=== PATIENT | female | born 1955 | race Caucasian/White ===

== ENCOUNTER 2016-08-12 14:09 | Observation (INO) | payer OTHER ==
[~2016-08-12] VITALS: Ht 154.9 cm; Wt 108.9 kg
[2016-08-12] VITALS (8 sets, daily range): BP systolic 148–204; BP diastolic 59–82; PULSE 63–80; RESP 9–19; O2SAT 94–96
[~2016-08-12 14:09] MED LIST: ALPR.25T PO; ASP81TEC PO; COZ100 PO; GLU500 PO; HUM100VI SQ; LEVO137T18 PO; SERT100T PO; TRAZ-151 PO; ZOC10 PO
[2016-08-12 14:52] LABS: BASOPHILS % (AUTO) 0.2 % (0-3); EOSINOPHILS % (AUTO) 0.9 % (0-5); Mean Corpuscular Hemoglobin 30.9 pg (27.0-35.0); Mean Corpuscular Volume 90.9 fL (81-100); Platelet Count 164 bil/L (150-400)
--- NOTE | 2016-08-12 14:59 | DRSVH ---
PROCEDURE: X-RAY CHEST ONE VIEW, PORTABLE ([id number]) INDICATIONS: 61 year-old female with intermittent substernal chest pain for 6 days. TECHNIQUE: One view of the chest was acquired. COMPARISON: [facility], CR, CHEST 2VW, 05/01/2009, 16:45. [facility], CR, CHEST 2VW, 10/10/2008, 17:05. [facility], CR, CHEST 1VW (PORTABLE), 02/06/2007, 4:41. FINDINGS: Surgical changes and devices: None. Lungs and pleura: No pleural effusions or pneumothorax. Lungs are clear. Mediastinum: Mediastinal contours appear normal. Heart size is normal. Bones and chest wall: No suspicious bony lesions. Overlying soft tissues appear unremarkable. IMPRESSION: No acute cardiopulmonary disease. Dictated by: Tery Lopez M.D. on 08/12/2016 at 14:57 Approved by: Trey Lopez M.D. on 08/12/2016 at 14:57
--- NOTE | 2016-08-12 15:06 | ED.REPORT ---
HPI-Chest Pain 40 and Over Date of Service Aug 12, 2016 ED Provider: Dr. Vicente 61 year old female DM, HTN and hyperlipidemia and mitral valve prolapse, with 5- 6 days of intermittent central chest pressure. She has this a few times a day, with no episodes lasting longer than 10 minutes. Symptoms are exacerbated with eating and laying down. At timed the pain is sharp. Since the onset of symptoms 2 hours ago her symptoms have improved. For the last few hours she has been experiencing a dull upper back pain between the shoulder blades. Earlier the patient felt tingling to bilat hands which has since resolved. She also reports palpitations, stress, and anxiety. Additionally she complains of a cough but denies SOB, diaphoresis, nausea, fever. En route the patient was given 324 ASA and 1 nitro by medics. Publishing Director is in [place]. Pt had a stress test at the time which was negative per patient. 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 (Aspirin EC-Expunged Drug, Do Not Renew!) 81 Mg Tablet 81 MG PO DAILY Atorvastatin (Lipitor) 80 Mg Tablet 80 MG PO DAILY Hydrochlorothiazide (Hydrochlorothiazide) 12.5 Mg Tablet 12.5 MG PO DAILY Insulin Aspart (NovoLOG U-100 Pen) 100 Unit/Ml Insuln.pen 20 TID Insulin Glargine (Lantus U100 Solostar Insulin Pen) 100 Unit/1 Ml Insuln.pen 90 UNIT SUBQ HS Lansoprazole ODT (Prevacid ODT) 15 Mg Tablet 15 MG PO DAILY Levothyroxine (Levothyroxine) 150 Mcg Tablet 150 MCG PO DAILY Losartan-Expunged Drug, Do Not Renew! (Losartan-Expunged Drug, Do Not Renew!) 100 Mg Tablet 100 MG PO HS Mirtazapine (Mirtazapine) 30 Mg Tablet 30 MG PO HS Trazodone-Expunged Drug, Do Not Renew! (Trazodone-Expunged Drug, Do Not Renew!) 50 Mg Tab 50 MG PO HS Scheduled PRN Alprazolam (Alprazolam) 1 Mg Tablet 0.5-1 MG PO TID PRN PRN For Anxiety Miscellaneous Medications Lactobacillus Acidophilus (Probiotic) 1 Each Capsule 1 EACH PO [place]-3/Dha/Epa/Fish Oil (Fish Oil 1,000 mg Softgel) 1 Each Capsule 2 EACH PO Ubidecarenone/Vitamin E Mixed (Yuu47-Din E 200 mg-20 Unit Sfg) 200 Mg-20 Unit Capsule 1 EACH PO General Time Seen by MD: 15:05 Chief Complaint Chest pain Hx Obtained From: Patient, EMS Arrived By: Ambulance Sudden in Onset?: Yes Onset Occurred: 5 days ago Symptom Duration: Intermittent Location: : Substernal Quality: Painful, Pressure, Sharp Radiation: : Does not radiate Severity: Current: Mild Severity: Maximum: Severe Associated with: Reports: Shortness of Breath, Denies: Fever Exacerbated by: Eating, Lying down Risk Factors )( CAD Risk Stratification Risk factors reviewed )( TAD Risk Stratification Risk factors reviewed )( PE Risk Stratification Risk factors reviewed Past Medical History Past Medical History Diabetes Hypertension hyperlipidemia Agoraphobia Past Surgical History Foot surgery Reports: Cholecystectomy Smoking History Current Every Day Smoker Social History Alcohol Use: "Social" Drug Use: THC Ambulatory Status Independent Review of Systems Basic Review of Systems Eyes: Vision NL, No discharge ENT: Hearing NL, No pain, No nasal congestion, No pharyngeal pain Constitutional: Denies: Chills, Fever Respiratory: Reports: Non-productive cough, Denies: Shortness of breath Cardiovascular: Reports: Chest pain, Denies: Edema, Palpitations GI: Denies: Abdominal pain, Diarrhea, Vomiting Musculoskeletal: Reports: Back pain, Denies: Extremity pain Skin: Denies Diaphoresis, Denies Rash Psychiatric: Reports: Anxiety, Stress Complete sys rev & neg: except as marked. Physical Exam Initial Vital Signs Vital Signs (First) Date Time Temp Pulse Resp B/P Pulse Ox O2 Delivery O2 Flow Rate FiO2 08/12/16 14:28 36.8 73 11 204/75 96 Room Air Initial VS: Reviewed, Vital signs abnormal Head / Eyes: Atraumatic, Normocephalic, PERRL ENT: Mucous membranes moist, Conjunctiva normal, No scleral icterus Neck: Supple, Full range of motion Extremities: Vascular intact, Neuro intact Skin: Warm, Dry, No cyanosis Neurologic: Alert, Oriented, Nonfocal Psychiatric: Mood/affect normal, Behavior normal, Normal thought content General/Constitutional: Awake, Alert Respiratory / Chest: Breath sounds NL, Breath sounds = bilat, No respiratory distress, No rales, No rhonchi, No wheezing, No stridor, No chest tenderness Cardiovascular: Heart rate NL, Regular rhythm, Heart sounds NL, No murmurs, Peripheral circulation NL, Pulses = bilaterally Abdomen: Soft, Non-tender Interpretation & Diagnostics Lab Results Interpretation Result Diagram: 08/12/16 1430 08/12/16 1430 Test 08/12/16 14:30 08/12/16 17:02 White Blood Count 10.2th/mm3 (3.8-10.1) Red Blood Count 4.53mil/mm3 (3.90-5.20) Hemoglobin 14.0g/dL (12.0-15.6) Hematocrit 41.2% (35.0-46.0) Mean Corpuscular Volume 90.9fL (81-100) Mean Corpuscular Hemoglobin 30.9pg (27.0-35.0) Mean Corpuscular Hemoglobin Concent 34.0% (32.0-37.0) Red Cell Distribution Width 13.4% (12.3-15.4) Platelet Count 164bil/L (150-400) Neutrophils (%) (Auto) 57.0% (40-74) Lymphocytes (%) (Auto) 35.5% (14-46) Monocytes (%) (Auto) 6.0% (4-12) Eosinophils (%) (Auto) 0.9% (0-5) Basophils (%) (Auto) 0.2% (0-3) Sodium Level 136mEq/L (134-144) Potassium Level 4.0mEq/L (3.5-5.2) Chloride Level 99mEq/L (97-108) Carbon Dioxide Level 19mmol/L (18-29) Blood Urea Nitrogen 18mg/dL (8-27) Creatinine 0.86mg/dL (0.57-1.00) Estimat Glomerular Filtration Rate 96mL/min (>59) Glucose Level 305mg/dL (60-99) Calcium Level 9.8mg/dL (8.5-10.1) Magnesium Level 1.5mg/dL (1.6-2.6) Total Bilirubin 0.4mg/dL (0.0-1.2) Aspartate Amino Transf (AST/SGOT) 37U/L (0-50) Alanine Aminotransferase (ALT/SGPT) 36U/L (0-32) Alkaline Phosphatase 120U/L (25-165) Troponin T < 0.010ug/L (0.0-0.011) Total Protein 7.6g/dL (6.4-8.4) Albumin 4.0g/dL (3.4-5.0) Hold Urine Received (Received) General Lab Results Interp 1: Labs reviewed ECG Interpretation ECG Interpretation: Lateral T wave changes. Flipped T waves in I, aVL, V5,V6. ST elevation in V1, V2. Changed from previous 2008. Time: 14:38 Interpreted by: ED physician Normal ECG Interpretation: Normal rate (72), Normal sinus rhythm, Normal axis, Normal intervals Time: 15:24 Interpreted by: ED physician Normal ECG Interpretation: Normal rate (76), Normal sinus rhythm Repeat ECG: Repeat ECG unchanged ECG Interpretation: No CP present Time: 16:25 Interpreted by: ED physician Normal ECG Interpretation: Normal rate (72), Normal sinus rhythm Repeat ECG: Repeat ECG unchanged X-Ray Chest Interpretation Chest Xray Interpretation: IMPRESSION: No acute cardiopulmonary disease. Dictated by: Trey Lopez M.D. on 08/12/2016 at 14:57 View: Portable, 1 view Interpretation / Wet Read by: Interpret - Radiologist CT Chest Interpretation IMPRESSION: 1. No thoracic or abdominal aortic dissection. No findings to suggest acute aortic syndrome. 2. Indeterminate 5 mm anterior right midlung nodule, as well as several punctate calcified bilateral granulomas. If no remote outside chest CTs are available, consider 12 month followup noncontrast chest CT, following the Fleischner society guidelines outlined below. Dictated by: Trey Lopez M.D. on 08/12/2016 at 16:48 Study type: Chest CT no contrast, Chest CT w contrast Interpretation / Wet Read by: Interpret - Radiologist Re-Eval/Medical Decision Med Decision/Clinical Course The patient presents with chest pain which is concerning for ischemia, her risk factors are age, obesity, cholesterol, and diabetes. She has new EKG changes and her symptoms resolved with nitroglycerin and metoprolol. Differential diagnoses considered were acute coronary syndrome, aortic dissection, pneumonia , pulmonary embolus, pancreatitis, and musculoskeletal pain. Time of Eval: 16:18 Re-Evaluation/Progress Note: pain 08/20. Consultation #1: Referral / Consult Name: Erick Chaudhari MD Consulted With: Cardiology Call Returned at: 16:04 Note: will review ECG Consultation #2: Referral / Consult Name: Erick Chaudhari MD Consulted With: Cardiology Call Returned at: 16:19 Note: Control BP. Does not believe that this is primarily cardiac related. Consultation #3: Referral / Consult Name: Everardo Garcia MD Consulted With: Hospitalist Call Returned at: 17:52 Entry Level Account Executive: Will see patient, Agrees with eval, Agrees with plan, Accepts admit Counseled Regarding: Diagnosis, Lab results, Need for admission Discharge & Departure Primary Impression: Chest pain Chest pain type: unspecified Qualified Code: R07.9 - Chest pain, unspecified Disposition: ADMITTED TO HOSPITAL Discharge Condition All VS Reviewed: Yes Referrals: OTHER,PHYSICIAN (PCP) (Family) Scribe Attestation Portions of this note were transcribed by Alyssa Herrera. I, (Dr. Vicente) personally performed the history, physical exam and medical decision-making; I reviewed and confirmed the accuracy of the information in the transcribed note. Signed by: Alyssa Herrera. 08/12/2016, 1805 Ericka Vicente MD Aug 12, 2016 15:05 Alyssa Herrera Aug 12, 2016 15:27
[2016-08-12 15:23] LABS: Magnesium 1.5 mg/dL (1.6-2.6)
[2016-08-12] MEDS ORDERED: MeTOProlol 1 mg/mL 5 mL Inj IVPUSH ONE ×3 (15:25→16:25)
[2016-08-12 15:30] LABS: TROPONIN T < 0.010 ug/L (0.0-0.011)
[2016-08-12] MEDS ORDERED: Magnesium Sulf 2 Gm/50mL Water 2 GM in IV Premix 1 EACH IV ONE (15:40)
[2016-08-12] MEDS ORDERED: INSU100I13 SUBQ (15:42)
[2016-08-12] MEDS ORDERED: INSU100I (15:42)
[2016-08-12] MEDS ORDERED: ALPR1TAB7 PO (15:42)
[2016-08-12] MEDS ORDERED: LANS15TA3 PO (16:13)
[2016-08-12] MEDS ORDERED: LEVO150T5 PO (16:13)
[2016-08-12] MEDS ORDERED: MIRT30TA6 PO (16:13)
[2016-08-12] MEDS ORDERED: OMEG-38 PO (16:13)
[2016-08-12] MEDS ORDERED: HYDR12.55 PO (16:13)
[2016-08-12] MEDS ORDERED: LACT1CAP65 PO (16:13)
[2016-08-12] MEDS ORDERED: ATOR80TA PO (16:13)
[2016-08-12] MEDS ORDERED: UBID1CAP59 PO (16:13)
[2016-08-12] MEDS ORDERED: Nitroglycerin 2% 1 Gm Ointment TOPICAL ONE ×2 (16:20→16:45)
--- NOTE | 2016-08-12 16:50 | DRSVH ---
PROCEDURE: CT ANG CHEST/ABD W/WO CONTRAST ([id number]) INDICATIONS: 61 year-old female with hypertension and back pain. TECHNIQUE: Precontrast 5 mm thick sections acquired from the lung apices to the iliac crests. After the adminis tration of intravenous contrast, 3 mm thick sections again acquired from the lung apices to the iliac crests. 3-dimensional maximum intensity projection (MIP) oblique sagittal and coronal reformats wer e then acquired, and/or 3-dimensional volume rendering reformats. For radiation dose reduction, the following was used: automated exposure control. COMPARISON: [facility], CR, XR CHEST 1VW (PORTABLE), 08/12/2016, 14:29. FINDINGS: Image quality: Excellent. AORTA: Intramural hematoma: Absent. Maximum hematoma thickness: Not applicable. Focal contrast enhancement: Intramural blood pool (< 2 mm neck or imperceptible communication with aortic lumen): Absent. Ulcer-like projection (broad communication with aortic lumen > 3 mm): Absent.. Dissection: Absent. Josué classification: Not applicable. Periaortic hematoma: Absent. CHEST: Lungs and pleura: No acute airspace opacities. On axial image 21, 5 mm anterior right midlung nodul e is present. Scattered calcified punctate granulomas are also present bilaterally. No pleural effusi ons or pneumothorax. Central and peripheral airways are patent and normal in caliber. Mediastinum: There is mild cardiomegaly. No pericardial effusion. No mediastinal or hilar adenopath y by size criteria. Central pulmonary arteries are normal in size. Esophagus is normal in caliber. No hiatal hernias. Bones and chest wall: No axillary adenopathy by size criteria. Thyroid gland is normal in size. No suspicious bony lesions. No vertebral body compression fractures. ABDOMEN: Vasculature: Celiac trunk and mesenteric arteries are patent. Renal arteries are also patent. Solid organs: Liver and spleen are normal in size. Gallbladder is surgically absent. Biliary syste m is non dilated. Pancreas enhances normally. No adrenal nodules. Both kidneys are normal in size and enhancement, without hydronephrosis. Peritoneum and bowel: No free fluid or air. Bowel loops are normal in caliber and wall thickness. Nodes and vessels: No retroperitoneal or mesenteric adenopathy by size criteria. Inferior vena cava is normal in morphology. Bones: No suspicious bony lesions. No vertebral body compression fractures. Miscellaneous: No ventral hernias. IMPRESSION: 1. No thoracic or abdominal aortic dissection. No findings to suggest acute aortic syndrome. 2. Indeterminate 5 mm anterior right midlung nodule, as well as several punctate calcified bilateral granulomas. If no remote outside chest CTs are available, consider 12 month followup noncontrast ches t CT, following the Fleischner society guidelines outlined below. Fleischner Society criteria for SOLID lung nodule followup. Nodule size (mm)Low-risk patientHigh-risk [id number] follow-up neededFollow-up at 12 mo; if no anderson e, no further follow-up>[id number] CT at 12 mo; if no change, no further follow-up needed.Initial f ollow-up CT at 6-12 mo, then 18-24 mo if no change. >6-8Initial follow-up CT at 6-12 mo, then 18-24 mo if no change. Initial follow-up CT at 3-6 mo, then 9-12 mo and 24 mo if no change. >8Follow-up CT at 3, 9, 24 mo. Or PET and/or biopsy.Same as for low-risk pts. Dictated by: Trey Lopez M.D. on 08/12/2016 at 16:48 Approved by: Trey Lopez M.D. on 08/12/2016 at 16:48
[2016-08-12] MEDS: 0.9% Sodium Chloride 1,000 ML IV SCH (18:11)
[2016-08-12] MEDS ORDERED: Ondansetron 2 mg/mL 2 mL Inj IVPUSH PRN (18:15)
[2016-08-12] MEDS ORDERED: Alum-Mag Hydrox-Simeth 30 mL Suspension PO PRN (18:15)
--- NOTE | 2016-08-12 19:00 | NUR ---
transfer from ed to osc [id number] arrived on floor, a/o x 3, in no apparent distress. at bedside and supportive. iv infusing sans prob. ins to dbc and ankle wave and calf pump as well as in use of bedside controlls, no questions.
[2016-08-12] MEDS ORDERED: Polyethylene Glycol (PEG) 17 Gm Powder PO PRN (19:15)
[2016-08-12] MEDS ORDERED: hydrALAZINE 20 mg/mL Inj IV PRN (19:30)
[2016-08-12] MEDS: Insulin LISPRO 300 Unit/3 mL Inj SUBQ SCH (21:17)
--- NOTE | 2016-08-12 21:27 | PCM.HPMED ---
Subjective Date of Service Aug 12, 2016 Primary Provider: Admitting Physician: Everardo Garcia MD Primary Care Physician: Other,Physician Attending Physician: Everardo Garcia MD Admit Status: From the Emergency Department Chief Complaint: This is a 61-year-old female with intermittent chest pressure/pain for 2 days. She points to the center of her chest, making a fist in that location. It radiates variably, sometimes to both arms and hands, sometimes to both feet but the part that radiates is only tingling and not pain. There has been no palpitations, shortness of breath, abdominal pain. She does have "gas" and this symptom is relieved by belching. I do observe an episode of belching relieving her symptoms during my exam. She has a fairly loud murmur of apparent mitral stenosis, per her recollection, with apparently her last echocardiogram and stress test about [address] Guzmán in [place]. The EKG today shows significant T-wave inversions in the lateral and inferior leads as compared to the last EKG in the system from 2008. This is thought to be related to hypertensive strain given that her systolics are above 200. The emergency department attending did discuss her presentation with cardiology due to the EKG changes. Her troponin is normal. History of Present Illness: See above discussion. Review of Systems: There has been no bleeding, joint pain, fevers, chills, sweats, vomiting, seizures, dysuria, rash, depression, new allergies. Positive for chest pain, extremity tingling. 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 pylori gastritis Anxiety disorder Nicotine addiction in remission (stopped 5 days ago half a pack a day) Hyperlipidemia Diabetes mellitus type II Hypertension Depression Hypothyroidism Surgical History cholecystectomy right bunion surgery Tonsillectomy Social History Hx Alcohol Use: Yes (occasional) Hx Substance Use: No Hx Tobacco Use: No Smoking Status: Current Every Day Smoker Exam Vital Signs Vital Sign - Last Date Time Temp Pulse Resp B/P Pulse Ox O2 Delivery O2 Flow Rate FiO2 08/12/16 19:05 36.9 63 16 168/82 95 Room Air Exam She is alert and oriented, in no apparent distress. She does persist on sitting straight up at a 90 angle on the stretcher. Pupils are equally round and reactive to light and accommodation. Sclera are pink and nonicteric. Extraocular muscles are intact. Throat looks normal. No lymph nodes are felt head and neck or supraclavicular area. There is no thyromegaly. No carotid bruits are heard. JVD is less than 6 cm. Heart is regular rate and rhythm with a 2/6 systolic murmur. Lungs are clear to auscultation bilaterally. Abdomen is soft. Obese, nontender, no organomegaly Extremities have no ankle edema Skin has no rash or jaundice. Neuro exam is noted for cranial nerves II through XII testing intact, motor is 5 out of 5 throughout, DTRs are normal. There is no tremor. Lab and Diagnostics Result Diagram: 08/12/16 1430 08/12/16 1430 X-Rays, CTs and MRIs CHEST: Lungs and pleura: No acute airspace opacities. On axial image 21, 5 mm anterior right midlung nodule is present. Scattered calcified punctate granulomas are also present bilaterally. No pleural effusions or pneumothorax. Central and peripheral airways are patent and normal in caliber. Mediastinum: There is mild cardiomegaly. No pericardial effusion. No mediastinal or hilar adenopathy by size criteria. Central pulmonary arteries are normal in size. Esophagus is normal in caliber. No hiatal hernias. Bones and chest wall: No axillary adenopathy by size criteria. Thyroid gland is normal in size. No suspicious bony lesions. No vertebral body compression fractures. ABDOMEN: Vasculature: Celiac trunk and mesenteric arteries are patent. Renal arteries are also patent. Solid organs: Liver and spleen are normal in size. Gallbladder is surgically absent. Biliary system is non dilated. Pancreas enhances normally. No adrenal nodules. Both kidneys are normal in size and enhancement, without hydronephrosis. Peritoneum and bowel: No free fluid or air. Bowel loops are normal in caliber and wall thickness. Nodes and vessels: No retroperitoneal or mesenteric adenopathy by size criteria. Inferior vena cava is normal in morphology. Bones: No suspicious bony lesions. No vertebral body compression fractures. Miscellaneous: No ventral hernias. IMPRESSION: 1. No thoracic or abdominal aortic dissection. No findings to suggest acute aortic syndrome. 2. Indeterminate 5 mm anterior right midlung nodule, as well as several punctate calcified bilateral granulomas. If no remote outside chest CTs are available, consider 12 month followup noncontrast chest CT, following the Fleischner society guidelines outlined below. 12-lead ECG EKG is sinus rhythm without acute ST or T-wave changes. Assessment & Plan 1 - atypical chest pain, rule out acute coronary syndrome The EKG changes are concerning but are also consistent with left ventricular strain from current excessive blood pressure. Repeat troponin in the morning and continue telemetry monitoring. Order echocardiogram. Consider cardiology consultation. Consider cardiac stress test. 2 - paroxysmal hypertension Begin lisinopril and add when necessary IV hydralazine. 3 - hypothyroidism Continue levothyroxine 4 - type II diabetes mellitus Continue Lantus and aspart at home doses. 5 - hyperlipidemia Continue atorvastatin 6 - depression/anxiety Continue Remeron and Xanax. Everardo Edmonds M.D., MD Aug 12, 2016 19:23
[2016-08-12] MEDS: Insulin GLARgine 100 Unit/mL Syringe SUBQ SCH (22:26)
[2016-08-12] MEDS: Lisinopril 40 Tablet PO SCH (23:51)
[2016-08-13] VITALS (9 sets, daily range): BP systolic 131–144; BP diastolic 62–77; PULSE 64–76; RESP 18–20; O2SAT 94–100
[2016-08-13] MEDS ORDERED: OMEP20CA11 PO (01:29)
[2016-08-13] MEDS ORDERED: TRAZ-115 PO (01:29)
[2016-08-13] MEDS ORDERED: ASPI81TA3 PO (01:29)
[2016-08-13] MEDS: Pantoprazole 40 mg ER24 Tablet PO SCH (06:16)
[2016-08-13] MEDS: 0.9% Sodium Chloride 1,000 ML IV SCH ×3 (06:21→16:18)
[2016-08-13 06:28] LABS: BASOPHILS % (AUTO) 0.2 % (0-3); EOSINOPHILS % (AUTO) 1.2 % (0-5); MONOCYTES % (AUTO) 8.8 % (4-12); Mean Corpuscular Hemoglobin 30.6 pg (27.0-35.0); NEUTROPHILS % (AUTO) 59.1 % (40-74); Platelet Count 157 bil/L (150-400)
[2016-08-13 07:03] LABS: Magnesium 1.9 mg/dL (1.6-2.6)
[2016-08-13] MEDS: Insulin LISPRO 300 Unit/3 mL Inj SUBQ SCH ×3 (08:30→19:27)
[2016-08-13] MEDS: Lisinopril 40 Tablet PO SCH (08:52)
--- NOTE | 2016-08-13 17:45 | DRSVH ---
[facility] [address] [place] [address] Echocardiogram Report Name: JUN VEGA Date: 10/2016 Height: 61 in Hospital Exam Location: [facility] Weight: 233 lb Gender: Female BSA: 2.0 m2 : 1955 Age: 61 yrs BP: 138/74 mmHg Reason For Study: Mitral Valve- Stenosis Ordering Physician: Performed By: Amber Henry Interpretation Summary The left ventricle is normal in size. There is mild-moderate concentric left ventricular hypertrophy. Left ventricular systolic function is normal. The ejection fraction is estimated to be 60-65%. The right ventricle grossly appears normal in size with probable normal systolic function. There is no mitral stenosis. There is moderate aortic stenosis. The calculated aortic valve area is 1.0 cm2. No other echocardiographic abnormalities seen. Procedure: A two-dimensional transthoracic echocardiogram with color flow and Doppler was performed. There is no prior echocardiogram noted for this patient. Most of the acoustic windows were suboptimal, but the best imaging was obtained from the apical window. The patient was in normal sinus rhythm during the exam. Left Ventricle: Left ventricular wall thickness is moderately increased. The left ventricle is normal in size. The LVOT diameter is 1.8 cm. The LVOT velocity is 130.1 cm/sec. There is mild-moderate concentric left ventricular hypertrophy. The ejection fraction is estimated to be 60-65%. Left ventricular systolic function is normal. There are no focal wall motion abnormalities. Right Ventricle: The right ventricle grossly appears normal in size with probable normal systolic function. Atria: The left atrium is mildly dilated. Right atrial size is normal. There is no Doppler evidence for an interatrial shunt. Mitral Valve: The mitral valve leaflets are mildly calcified. The mitral valve leaflets appear mildly thickened. The mean gradient across the MV is 3.7 mmHg. There is no mitral stenosis. There is trace mitral regurgitation. Aortic Valve: The aortic valve is not well visualized. The peak aortic velocity is 334 cm/sec. The aortic valve mean gradient is 26 mmHg. There is moderate aortic stenosis. The calculated aortic valve area is 1.0 cm2. There is trace aortic regurgitation. Tricuspid Valve: The tricuspid valve is not well visualized. Pulmonary artery pressures cannot be estimated because of the lack of a measurable TR jet velocity. Pulmonic Valve: The pulmonic valve is not well visualized. Great Vessels: The aortic root is normal size. The ascending aorta is normal in size. The aortic arch could not be visualized. The inferior vena cava was not well visualized. Pericardium/ Pleura There is no pericardial effusion. MMode/2D Measurements & Calculations LVIDd: 4.8 cm RA long axis LVOT diam LVIDs: 3.1 cm LA A2 area: 20.5 cm FS: 35.6 % LA A4 area: 22.3 cm RA area AoV Opening EPSS: 0.59 cm LA length (vol): 5.5 cm IVSd: 1.3 cm LA vol: 70.1 ml : 13.0 cm Ao root diam LVPWd: 1.3 cm LA vol index RA vol : 31.2 ml asc Aorta : 34.8 ml/m2 RA Diam: 3.2 cm : 15.5 mm2 LV nathan. diameter/BSA LV sys. diameter/BSA (cm/m^2): 2.4 (cm/m^2): 1.5 Doppler Measurements & Calculations Ao V2 max MV E max irving MV E/A: 1.2 PA V2 max : 333.6 cm/sec : 148.5 cm/sec Med Peak E' Irving : 109.9 cm/sec Ao max PG MV A max irving PA mean PG : 44.5 mmHg : 128.6 cm/sec E/E' med: 26.1 Ao mean PG MV P1/2t: 71.1 msec Lat Peak E' Irving PA Accel Time : 26.0 mmHg MVA(VTI): 1.9 cm2 : 0.09 sec LVOT Max Irving E/E' lat: 22.4 : 130.1 cm/sec Pulm A Revs Dur MESSI(I,D) : 0.97 cm MV A dur: 0.12 sec sev ratio MV V2 mean MV P1/2t max irving Ao V2 mean LV V1 max PG : 88.7 cm/sec : 243.6 cm/sec MV mean PG Ao V2 VTI: 75.9 cm LV V1 VTI MVA(P1/2t): 3.1 cm2 : 27.3 cm MV V2 VTI MESSI(V,D): 1.0 cm2 MV dec time : 0.24 sec PA V2 mean MESSI indexed to BSA Pulm A Revs Dur - MV : 75.5 cm/sec (cm^2/m^2): 0.48 A Dur: 0.00 msec Reading Physician:05:44 PM
--- NOTE | 2016-08-13 18:14 | NUR ---
CARDIAC P- Patient showed inverted T wave on previous EKG. I- ECHO done today shows EF of 60-65, no abnormalities noted. E- MD note says possible stress test/cardiac consult tomorrow. Addendum: 08/13/16 at 1830 by CARTER MUNGUIA RN awaiting pending Coccidiodes Ab "valley fever" results.
[2016-08-13] MEDS: Insulin GLARgine 100 Unit/mL Syringe SUBQ SCH (21:06)
--- NOTE | 2016-08-13 22:52 | PCM.PNMED ---
Subjective Date of Service Aug 13, 2016 Subjective Patient continues to complain of chest discomfort which is parasternal on both sides of her sternum. The pain is described as a pressure and she says she has had pleurisy in the past and the pain does increase with deep inspiration but is little different than pleurisy. There is no radiation to the neck or left arm. Exam Vital Signs Vital Sign - Last Date Time Temp Pulse Resp B/P Pulse Ox O2 Delivery O2 Flow Rate FiO2 08/13/16 21:45 36.9 65 20 144/74 96 Room Air Intake and Output 08/12/16 08/12/16 08/13/16 Cumulative From/Thru 14:59 22:59 06:59 08/12/16 14:28 - 08/13/16 06:23 Intake Total 943 ml 943 ml Output Total 1600 ml 1600 ml Balance -657 ml -657 ml Intake Oral 150 ml 150 ml IV Total 793 ml 793 ml Output Urine Total 1600 ml 1600 ml # Voids 2 2 # Bowel Movements 0 0 Exam General: Patient is laying supine in bed in no apparent distress. She is interested in eating breakfast. And ordered it as soon as I left the room and when I came back she had 38 and her breakfast. She was in no apparent distress. HEENT: Head is atraumatic normocephalic. Eyes: Pupils are equally round and reactive to light and accommodation. Extraocular muscles are intact. Sclera are white anicteric. Subconjunctival mucosa is pink. Ears and nose are unremarkable. Oropharynx: There is no mucosal lesions, there is no thrush, there is no pharyngitis. Neck: Is supple, there is no nodes or masses or tenderness. Chest: Is clear to auscultation and percussion. There are no rales, rhonchi, wheezes or rubs. There is some parasternal tenderness with palpation. Heart: Rate, rhythm is regular. There is no murmur, rub or gallop. Abdomen: Good bowel sounds are present. Abdomen is soft, nontender, no organomegaly or masses were appreciated. Extremities: Are symmetrical and well perfused. There is no edema, there is no cellulitis, no rash. Neurologic: There are no focal neurological deficits. Cranial nerves II through XII are intact. There are no sensory or motor deficits. Psychiatric: Patients mood is calm and shows no sign of agitation. Genital: Deferred Rectal: Deferred Lab and Diagnostics Result Diagram: 08/13/16 0545 08/13/1645 X-Rays, CTs and MRIs CHEST: Lungs and pleura: No acute airspace opacities. On axial image 21, 5 mm anterior right midlung nodule is present. Scattered calcified punctate granulomas are also present bilaterally. No pleural effusions or pneumothorax. Central and peripheral airways are patent and normal in caliber. Mediastinum: There is mild cardiomegaly. No pericardial effusion. No mediastinal or hilar adenopathy by size criteria. Central pulmonary arteries are normal in size. Esophagus is normal in caliber. No hiatal hernias. Bones and chest wall: No axillary adenopathy by size criteria. Thyroid gland is normal in size. No suspicious bony lesions. No vertebral body compression fractures. ABDOMEN: Vasculature: Celiac trunk and mesenteric arteries are patent. Renal arteries are also patent. Solid organs: Liver and spleen are normal in size. Gallbladder is surgically absent. Biliary system is non dilated. Pancreas enhances normally. No adrenal nodules. Both kidneys are normal in size and enhancement, without hydronephrosis. Peritoneum and bowel: No free fluid or air. Bowel loops are normal in caliber and wall thickness. Nodes and vessels: No retroperitoneal or mesenteric adenopathy by size criteria. Inferior vena cava is normal in morphology. Bones: No suspicious bony lesions. No vertebral body compression fractures. Miscellaneous: No ventral hernias. IMPRESSION: 1. No thoracic or abdominal aortic dissection. No findings to suggest acute aortic syndrome. 2. Indeterminate 5 mm anterior right midlung nodule, as well as several punctate calcified bilateral granulomas. If no remote outside chest CTs are available, consider 12 month followup noncontrast chest CT, following the Fleischner society guidelines outlined below. 12-lead ECG EKG is sinus rhythm without acute ST or T-wave changes. Cardiac Echo Impressions Echocardiogram Report Name: JUN VEGA Date: 10/2016 Height: 61 in Hospital Exam Location: [facility] Weight: 233 lb Gender: Female BSA: 2.0 m2 : 1955 Age: 61 yrs BP: 138/74 mmHg Reason For Study: Mitral Valve- Stenosis Ordering Physician: Performed By: Amber Ofstad Interpretation Summary The left ventricle is normal in size. There is mild-moderate concentric left ventricular hypertrophy. Left ventricular systolic function is normal. The ejection fraction is estimated to be 60-65%. The right ventricle grossly appears normal in size with probable normal systolic function. There is no mitral stenosis. There is moderate aortic stenosis. The calculated aortic valve area is 1.0 cm2. No other echocardiographic abnormalities seen. Assessment & Plan This is a 61-year-old female with intermittent chest pressure/pain for 2 days. She points to the center of her chest, making a fist in that location. It radiates variably, sometimes to both arms and hands, sometimes to both feet but the part that radiates is only tingling and not pain. There has been no palpitations, shortness of breath, abdominal pain. She does have "gas" and this symptom is relieved by belching. I do observe an episode of belching relieving her symptoms during my exam. She has a fairly loud murmur of apparent mitral stenosis, per her recollection, with apparently her last echocardiogram and stress test about [address] Guzmán in [place]. The EKG today shows significant T-wave inversions in the lateral and inferior leads as compared to the last EKG in the system from 2008. This is thought to be related to hypertensive strain given that her systolics are above 200. The emergency department attending did discuss her presentation with cardiology due to the EKG changes. Her troponin is normal. Patient was brought in under observation to the hospital service for further evaluation and treatment. 1 - atypical chest pain, rule out acute coronary syndrome The EKG changes are concerning but are also consistent with left ventricular strain from current excessive blood pressure. Repeat troponin in the morning and continue telemetry monitoring. -The echocardiogram showed: "There is no mitral stenosis. There is moderate aortic stenosis. The calculated aortic valve area is 1.0 cm2. Consider cardiology consultation. Consider cardiac stress test." We will check stress test in a.m. and consider cardiology consultation. 2 - paroxysmal hypertension Begin lisinopril and add when necessary IV hydralazine. 3 - hypothyroidism Continue levothyroxine 4 - type II diabetes mellitus Continue Lantus and aspart at home doses. 5 - hyperlipidemia Continue atorvastatin 6 - depression/anxiety Continue Remeron and Xanax. 7- Indeterminate 5 mm anterior right midlung nodule, as well as several punctate calcified bilateral granulomas. 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 This disease could certainly cause some of her chest pain symptoms. I have ordered cocci serologies which are pending Disposition: Patient disposition will depend on stress test results she has significant aortic stenosis. Dr. Park to follow in a.m. Pain Evaluation: Adequate Pain Control GI Prophylaxis: Proton Pump Inhibitor VTE Prophylaxis: Sub-Q Enoxaparin Resuscitation Status: CPR: Attempt Resuscitation Jalen Montalvo MD Aug 13, 2016 22:52
[2016-08-14 02:00] VITALS: BP 162/70; PULSE 77; RESP 20; O2SAT 97
[2016-08-14] MEDS: 0.9% Sodium Chloride 1,000 ML IV SCH (02:54)
[2016-08-14 03:08] VITALS: PULSE 67
[2016-08-14 06:03] LABS: BASOPHILS % (AUTO) 0.4 % (0-3); MONOCYTES % (AUTO) 7.4 % (4-12); Mean Corpuscular Hemoglobin 30.9 pg (27.0-35.0); Mean Corpuscular Volume 91.4 fL (81-100); NEUTROPHILS % (AUTO) 54.6 % (40-74); Platelet Count 149 bil/L (150-400)
--- NOTE | 2016-08-14 06:19 | NUR ---
Telemetry Pt alert and oriented x3. STALLINGS. Pt denies any chest pain/discomfort. Pt had some decaf tea during dinner. Per patient, she had some decaf tea around 2100. Pt aware of npo after midnight and no caffeine diet. Pt was switched to No caffeine late last night. Addendum: 08/14/16 at 0729 by VITALY HOPE RN Pt requested for Senna this am for constipation. No bm at this time.
[2016-08-14 06:20] VITALS: BP 162/76; PULSE 62; RESP 20; O2SAT 98
[2016-08-14] MEDS: Pantoprazole 40 mg ER24 Tablet PO SCH (06:28)
[2016-08-14 07:16] LABS: Magnesium 1.9 mg/dL (1.6-2.6); Phosphorus 3.3 mg/dL (2.5-4.9)
[2016-08-14 07:28] LABS: TROPONIN T < 0.010 ug/L (0.0-0.011)
[2016-08-14] MEDS: Insulin LISPRO 300 Unit/3 mL Inj SUBQ SCH (08:30)
[2016-08-14 10:12] VITALS: PULSE 68
--- NOTE | 2016-08-14 10:16 | NUR ---
off unit for stress test Addendum: 08/14/16 at 1016 by JAYME VYAS CNA Amended: Links added.
--- NOTE | 2016-08-14 10:23 | NUR ---
Social Work Screening D: EMR reviewed. Pt is a 61Y old female [place] for Chest Pain Resolved. Insurance is [facility]. PCP is listed as other physician. Per EMR, Pt lives in [place] with her spouse where she remains independent. Stress test is pending. SW anticipates Pt to discarge home via POV when medically stable. No discharge needs identified. If needs arise, SW to address. A: Pt who is independent at baseline P: SW anticipates Pt to discarge home via POV when medically stable. No discharge needs identified. If needs arise, SW to address. SIRIA Dinh
[2016-08-14] MEDS: Lisinopril 40 Tablet PO SCH (11:19)
[2016-08-14] MEDS ORDERED: LOSA100T29 PO (11:30)
[2016-08-14 11:39] VITALS: BP 162/81; PULSE 101; RESP 20; O2SAT 98
--- NOTE | 2016-08-14 12:20 | DRSVH ---
PROCEDURE: 1 DAY PHARMACOLOGICAL STRESS TEST Rest and pharmacological stress myocardial perfusion SPECT with gated imaging and ejection fraction RADIOPHARMACEUTICAL: 16.5 mCi Tc-99m tetrafosmin IV at rest and 44.7 mCi Tc-99m tetrafosmin IV at pea k effect of pharmacological stress. A [id number] was performed. INDICATIONS: 61-year-old woman with chest pain and EKG changes. Patient has hypertension, diabetes a nd family history of coronary artery disease. TECHNIQUE: Radiopharmaceutical was injected at peak stress test, and also at rest. SPECT images wer e obtained. SPECT myocardial perfusion images were displayed in short axis, horizontal long axis, an d vertical long axis views. Gated images were reviewed using [employer] software. COMPARISON: None. CARDIAC STRESS: The patient started on an exercise stress test using standard Sadi protocol. The pa tient exercised for 4 and 33 seconds with functional aerobic impairment (MAC) +25% and reached 80% ma ximum predicted heart rate. The stress test was switched to Lexiscan infusion. A pharmacologic stress test was performed under the supervision of an attending staff, using an infus ion of Lexiscan. Hemodynamic data: There is borderline hypertensive and normal heart rate response to pharmacologic s tress. Symptoms: The patient developed 3/10 neck pressure at peak exercise, increased to 5/10 with Lexiscan infusion. Aminophylline: n/a EK mm downsloping ST depression in lead II, III, aVF, V4-V6. FINDINGS: Raw data: There is good myocardial uptake of radiotracer. No significant motion artifacts. Left ventricle function: Gated images demonstrate normal left ventricular wall thickening. No segme ntal wall motion abnormalities. No transient ischemic dilation. Left ventricle resting end diastoli c volume is normal. Left ventricle stress ejection fraction is greater than 70%; normal range is abo ve 45%. Myocardial perfusion: A small, mild, fixed defect is seen in the apex, which is resolved on prone im aging, consistent with attenuation artifact. There is otherwise normal distribution of activity in th e right and left ventricular myocardium. IMPRESSION: 1. Normal myocardial perfusion images. 2. Normal left ventricular volume and systolic function. 3. Decreased exercise capacity (MAC +25%). The patient reached 80% maximum predicted heart rate on Br uce protocol. tHE Stress test was switched to Lexiscan infusion. 4. The patient experienced neck pressure at peak exercise (3/10) and Lexiscan infusion (5/10). Abnorm al EKG EKG with [address] depression. PQRS ATTESTATIONS: Measure 322 - Is this imaging test primarily performed on a low-risk surgery patient for preoperative evaluation within 30 days preceding their low-risk non-cardiac surgery? Low-risk surgery is defined as cardiac or myocardial infarction less than 1%, including (but not limited to) endoscopic pr ocedures, superficial procedures, cataract surgery, and excisional breast surgery: Answer: No Measure 323 - Is this imaging test performed primarily for the monitoring of an asymptomatic patient who had percutaneous coronary intervention on the visit date or within 2 years of the visit date? An swer: No Measure 324 - Is this imaging test performed primarily for the initial detection and risk assessment on an asymptomatic, low coronary heart disease patient? Low CHD risk definition = clinicians should consider the maximum number of available patient factors used to estimate risk based on Stephenson (A TP III criteria), typically age, gender, diabetes, smoking status, and use of blood pressure medicati on, and integrate age appropriate estimates for missing elements, such as LDL or standard blood press ure. Answer: No Dictated by: Nadira Sagastume M.D. on 08/14/2016 at 12:18 Approved by: Nadira Sagastume M.D. on 08/14/2016 at 12:18
[2016-08-14] MEDS ORDERED: HYDR25TA4 PO (14:11)
--- NOTE | 2016-08-14 14:21 | PCM.DIMED ---
Discharge Instructions Date of Service Aug 14, 2016 Dates of Hospitalization Aug 12, 2016 at 18:55 Discharge Diagnosis Discharge Diagnosis chest pain, non-anginal Medication Instructions increase Hydrochlorothiazide 12.5mg to 25mg daily Diet Low fat, Low Sodium, Heart Healthy Activity No restrictions Call your provider Chest pain Patient Instructions You were hospitalized with chest pain. Blood works, stress test indicating that it is not heart origin. Please note that your blood pressure medicine was changed as BP [id number] during hospitalization Please monitor your blood pressure at home with new regimen. Please ask your PCP to follow up the result of Coccidiodes serology "Valley fever" as we discussed Please note that There is moderate aortic stenosis found on echocardiogram, The calculated aortic valve area is 1.0 cm2, You need to have regular follow up with [facility] [employer] [facility] Please note that you were also found a 5mm pulmonary nodule, granulomas, recommendations as below ->Indeterminate 5 mm anterior right midlung nodule, as well as several punctate calcified bilateral granulomas. If no remote outside chest CTs are available, consider 12 month followup noncontrast chest CT, following the Fleischner society guidelines Follow-up plan Please follow up with your primary doctor in 2weeks Follow-up Provider: LUCI VARGAS MD Follow-up with PCP in: 1 week Eitan Park MD Aug 14, 2016 14:21
--- NOTE | 2016-08-14 16:02 | NUR ---
discharged home with family. will have follow up with her PCP. New Rx to increase HCTZ to 25mg daily from 12.5mg r/t HTN
--- NOTE | 2016-08-15 17:36 | PCM.DC.MED ---
Discharge Summary Date of Service Aug 14, 2016 Dates of Hospitalization Date of Hospital Admission Aug 12, 2016 at 18:55 Date of Discharge: Aug 14, 2016 Providers: Admitting Physician: Everardo Garcia MD Primary Care Physician: Other,Physician Attending Physician: Everardo Garcia MD Diagnosis at Time of Discharge Diagnosis at Time of Discharge chest pain, non-anginal moderate aortic stenosis incidental pulmonary nodule, granulomas chronic HTN hypothyroidism type II diabetes mellitus hyperlipidemia depression/anxiety Procedures XRay, CTs & MRIs CHEST: Lungs and pleura: No acute airspace opacities. On axial image 21, 5 mm anterior right midlung nodule is present. Scattered calcified punctate granulomas are also present bilaterally. No pleural effusions or pneumothorax. Central and peripheral airways are patent and normal in caliber. Mediastinum: There is mild cardiomegaly. No pericardial effusion. No mediastinal or hilar adenopathy by size criteria. Central pulmonary arteries are normal in size. Esophagus is normal in caliber. No hiatal hernias. Bones and chest wall: No axillary adenopathy by size criteria. Thyroid gland is normal in size. No suspicious bony lesions. No vertebral body compression fractures. ABDOMEN: Vasculature: Celiac trunk and mesenteric arteries are patent. Renal arteries are also patent. Solid organs: Liver and spleen are normal in size. Gallbladder is surgically absent. Biliary system is non dilated. Pancreas enhances normally. No adrenal nodules. Both kidneys are normal in size and enhancement, without hydronephrosis. Peritoneum and bowel: No free fluid or air. Bowel loops are normal in caliber and wall thickness. Nodes and vessels: No retroperitoneal or mesenteric adenopathy by size criteria. Inferior vena cava is normal in morphology. Bones: No suspicious bony lesions. No vertebral body compression fractures. Miscellaneous: No ventral hernias. IMPRESSION: 1. No thoracic or abdominal aortic dissection. No findings to suggest acute aortic syndrome. 2. Indeterminate 5 mm anterior right midlung nodule, as well as several punctate calcified bilateral granulomas. If no remote outside chest CTs are available, consider 12 month followup noncontrast chest CT, following the Fleischner society guidelines outlined below. ECG 12 Lead EKG is sinus rhythm without acute ST or T-wave changes. Cardiac Echo Impression Echocardiogram Report Name: JUN VEGA Date: 10/2016 Height: 61 in Hospital Exam Location: [facility] Weight: 233 lb Gender: Female BSA: 2.0 m2 : 1955 Age: 61 yrs BP: 138/74 mmHg Reason For Study: Mitral Valve- Stenosis Ordering Physician: Performed By: Amber Henry Interpretation Summary The left ventricle is normal in size. There is mild-moderate concentric left ventricular hypertrophy. Left ventricular systolic function is normal. The ejection fraction is estimated to be 60-65%. The right ventricle grossly appears normal in size with probable normal systolic function. There is no mitral stenosis. There is moderate aortic stenosis. The calculated aortic valve area is 1.0 cm2. No other echocardiographic abnormalities seen. Other Diagnostics PROCEDURE: 1 DAY PHARMACOLOGICAL STRESS TEST Rest and pharmacological stress myocardial perfusion SPECT with gated imaging and ejection fraction RADIOPHARMACEUTICAL: 16.5 mCi Tc-99m tetrafosmin IV at rest and 44.7 mCi Tc-99m tetrafosmin IV at peak effect of pharmacological stress. A [id number] was performed. INDICATIONS: 61-year-old woman with chest pain and EKG changes. Patient has hypertension, diabetes and family history of coronary artery disease. TECHNIQUE: Radiopharmaceutical was injected at peak stress test, and also at rest. SPECT images were obtained. SPECT myocardial perfusion images were displayed in short axis, horizontal long axis, and vertical long axis views. Gated images were reviewed using Datorama software. COMPARISON: None. CARDIAC STRESS: The patient started on an exercise stress test using standard Sadi protocol. The patient exercised for 4 and 33 seconds with functional aerobic impairment (MAC) +25% and reached 80% maximum predicted heart rate. The stress test was switched to Lexiscan infusion. A pharmacologic stress test was performed under the supervision of an attending staff, using an infusion of Lexiscan. Hemodynamic data: There is borderline hypertensive and normal heart rate response to pharmacologic stress. Symptoms: The patient developed 3/10 neck pressure at peak exercise, increased to 5/10 with Lexiscan infusion. Aminophylline: n/a EK mm downsloping ST depression in lead II, III, aVF, V4-V6. FINDINGS: Raw data: There is good myocardial uptake of radiotracer. No significant motion artifacts. Left ventricle function: Gated images demonstrate normal left ventricular wall thickening. No segmental wall motion abnormalities. No transient ischemic dilation. Left ventricle resting end diastolic volume is normal. Left ventricle stress ejection fraction is greater than 70%; normal range is above 45 %. Myocardial perfusion: A small, mild, fixed defect is seen in the apex, which is resolved on prone imaging, consistent with attenuation artifact. There is otherwise normal distribution of activity in the right and left ventricular myocardium. IMPRESSION: 1. Normal myocardial perfusion images. 2. Normal left ventricular volume and systolic function. 3. Decreased exercise capacity (MAC +25%). The patient reached 80% maximum predicted heart rate on Sadi protocol. tHE Stress test was switched to Lexiscan infusion. 4. The patient experienced neck pressure at peak exercise (3/10) and Lexiscan infusion (5/10). Abnormal EKG EKG with [address] depression. Brief History H&P performed by Dr. Garcia This is a 61-year-old female with intermittent chest pressure/pain for 2 days. She points to the center of her chest, making a fist in that location. It radiates variably, sometimes to both arms and hands, sometimes to both feet but the part that radiates is only tingling and not pain. There has been no palpitations, shortness of breath, abdominal pain. She does have "gas" and this symptom is relieved by belching. I do observe an episode of belching relieving her symptoms during my exam. She has a fairly loud murmur of apparent mitral stenosis, per her recollection, with apparently her last echocardiogram and stress test about [address] Guzmán in [place]. The EKG today shows significant T-wave inversions in the lateral and inferior leads as compared to the last EKG in the system from 2008. This is thought to be related to hypertensive strain given that her systolics are above 200. The emergency department attending did discuss her presentation with cardiology due to the EKG changes. Her troponin is normal. Hospital Course This is a 61-year-old female with intermittent chest pressure/pain for 2 days. She points to the center of her chest, making a fist in that location. It radiates variably, sometimes to both arms and hands, sometimes to both feet but the part that radiates is only tingling and not pain. There has been no palpitations, shortness of breath, abdominal pain. She does have "gas" and this symptom is relieved by belching. I do observe an episode of belching relieving her symptoms during my exam. She has a fairly loud murmur of apparent mitral stenosis, per her recollection, with apparently her last echocardiogram and stress test about [address] Guzmán in [place]. The EKG today shows significant T-wave inversions in the lateral and inferior leads as compared to the last EKG in the system from 2008. This is thought to be related to hypertensive strain given that her systolics are above 200. The emergency department attending did discuss her presentation with cardiology due to the EKG changes. Her troponin is normal. Patient was brought in under observation to the hospital service for further evaluation and treatment. 1 - atypical chest pain, rule out acute coronary syndrome The EKG changes are concerning but are also consistent with left ventricular strain from current excessive blood pressure. Repeat troponin in the morning and continue telemetry monitoring. -The echocardiogram showed: "There is no mitral stenosis. There is moderate aortic stenosis. The calculated aortic valve area is 1.0 cm2. Consider cardiology consultation. 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 This disease could certainly cause some of her chest pain symptoms. I have ordered cocci serologies which are pending Please follow-up coccidiomycosis serology in the clinic 2 - paroxysmal hypertension, continued with lisinopril and add when necessary IV hydralazine. 3 - hypothyroidism continued levothyroxine 4 - type II diabetes mellitus continued Lantus and aspart at home doses. 5 - hyperlipidemia continued atorvastatin 6 - depression/anxiety continued Remeron and Xanax. 7Incidental findings on CT chest, Indeterminate 5 mm anterior right midlung nodule, as well as several punctate calcified bilateral granulomas. If no remote outside chest CTs are available, consider 12 month followup noncontrast chest CT, following the Fleischner society guidelines -Please repeat CT scan as recommended or compared to prior one if it exists, pt was strongly asked to stop smoking Exam Vital Signs (Last) Date Time Temp Pulse Resp B/P Pulse Ox O2 Delivery O2 Flow Rate FiO2 08/14/16 11:39 36.6 101 20 162/81 98 Nasal Cannula 1.00 Exam NAD, comfortably laying down on the bed no JVD, MMM, no LAD RRR, nl s1, s2 no mrg CTAB, no w,c S,ND,NT,normoactive BS+ warm, no edema, pulses 2/2 Test 08/12/16 17:02 08/13/16 09:02 08/14/16 05:38 Hold Urine Received (Received) White Blood Count 8.2th/mm3 (3.8-10.1) Red Blood Count 4.18mil/mm3 (3.90-5.20) Hemoglobin 12.9g/dL (12.0-15.6) Hematocrit 38.2% (35.0-46.0) Mean Corpuscular Volume 91.4fL (81-100) Mean Corpuscular Hemoglobin 30.9pg (27.0-35.0) Mean Corpuscular Hemoglobin Concent 33.8% (32.0-37.0) Red Cell Distribution Width 13.3% (12.3-15.4) Platelet Count 149bil/L (150-400) Neutrophils (%) (Auto) 54.6% (40-74) Lymphocytes (%) (Auto) 35.4% (14-46) Monocytes (%) (Auto) 7.4% (4-12) Eosinophils (%) (Auto) 2.0% (0-5) Basophils (%) (Auto) 0.4% (0-3) Sodium Level 140mEq/L (134-144) Potassium Level 4.4mEq/L (3.5-5.2) Chloride Level 104mEq/L (97-108) Carbon Dioxide Level 21mmol/L (18-29) Blood Urea Nitrogen 14mg/dL (8-27) Creatinine 0.73mg/dL (0.57-1.00) Estimat Glomerular Filtration Rate 116mL/min (>59) Glucose Level 211mg/dL (60-99) Hemoglobin A1c 10.5% (4.8-5.6) Calcium Level 8.6mg/dL (8.5-10.1) Phosphorus Level 3.3mg/dL (2.5-4.9) Magnesium Level 1.9mg/dL (1.6-2.6) Total Bilirubin 0.3mg/dL (0.0-1.2) Aspartate Amino Transf (AST/SGOT) 29U/L (0-50) Alanine Aminotransferase (ALT/SGPT) 28U/L (0-32) Alkaline Phosphatase 111U/L (25-165) Troponin T < 0.010ug/L (0.0-0.011) Total Protein 6.1g/dL (6.4-8.4) Albumin 3.7g/dL (3.4-5.0) Discharge Medications Discharge Medications Aspirin Chew (Aspirin Chew) 81 Mg Chew 81 MG PO DAILY (Reported) Atorvastatin (Lipitor) 80 Mg Tablet 80 MG PO DAILY (Reported) Hydrochlorothiazide (Hydrochlorothiazide) 25 Mg Tablet 25 MG PO DAILY Prescribed by: EITAN POWELL MD Insulin Aspart (NovoLOG U-100 Pen) 100 Unit/Ml Insuln.pen 20 TID (Reported) Insulin Glargine (Lantus U100 Solostar Insulin Pen) 100 Unit/1 Ml Insuln.pen 90 UNIT SUBQ HS (Reported) Levothyroxine (Levothyroxine) 150 Mcg Tablet 150 MCG PO DAILY (Reported) Mirtazapine (Mirtazapine) 30 Mg Tablet 30 MG PO HS (Reported) Omeprazole (Omeprazole) 20 Mg Capsule.dr 20 MG PO DAILY (Reported) Trazodone (Trazodone) 50 Mg Tablet 50 MG PO HS (Reported) As needed Alprazolam (Alprazolam) 1 Mg Tablet 0.5-1 MG PO TID PRN PRN For Anxiety ( Reported) Miscellaneous Medications Losartan Potassium (Losartan Potassium) 100 Mg Tablet 100 MG PO (Reported) [place]-3/Dha/Epa/Fish Oil (Fish Oil 1,000 mg Softgel) 1 Each Capsule 2 EACH PO ( Reported) Ubidecarenone/Vitamin E Mixed (Pcs33-Oij E 200 mg-20 Unit Sfg) 200 Mg-20 Unit Capsule 1 EACH PO (Reported) Additional med instructions increase Hydrochlorothiazide 12.5mg to 25mg daily Followup Plan Disposition: Home Follow-up plan Please follow up with your primary doctor in 2weeks Discharge Diet: Low fat, Low Sodium, Heart Healthy Discharge Activity: No restrictions Patient Instructions You were hospitalized with chest pain. Blood works, stress test indicating that it is not heart origin. Please note that your blood pressure medicine was changed as BP [id number] during hospitalization Please monitor your blood pressure at home with new regimen. Please ask your PCP to follow up the result of Coccidiodes serology "[place] fever" as we discussed Please note that There is moderate aortic stenosis found on echocardiogram, The calculated aortic valve area is 1.0 cm2, You need to have regular follow up with [facility] Please note that you were also found a 5mm pulmonary nodule, granulomas, recommendations as below ->Indeterminate 5 mm anterior right midlung nodule, as well as several punctate calcified bilateral granulomas. If no remote outside chest CTs are available, consider 12 month followup noncontrast chest CT, following the Fleischner society guidelines Follow-up Provider: LUCI VARGAS MD Follow-up with PCP in: 1 week Time spent 65 minutes Eitan Powell MD Aug 15, 2016 17:36
== END 2016-08-14 15:54 | disposition home or self-care (01) ==
LOC: SED 14:09 → EDBD 14:09 → SED 18:27 → OSC 18:55
PROVIDERS: ADMIT Family Medicine; ATTEND Family Medicine
DX: R07.89 Other chest pain (principal); I35.0 Nonrheumatic aortic (valve) stenosis; R91.1 Solitary pulmonary nodule; I10 Essential (primary) hypertension; E03.9 Hypothyroidism, unspecified; E11.9 Type 2 diabetes mellitus without complications; E78.5 Hyperlipidemia, unspecified; F41.9 Anxiety disorder, unspecified; F32.9 Major depressive disorder, single episode, unspecified; F17.210 Nicotine dependence, cigarettes, uncomplicated; K22.70 Barrett's esophagus without dysplasia; B96.81 Helicobacter pylori [H. pylori] as the cause of diseases classified elsewhere; Z79.4 Long term (current) use of insulin
CPT/HCPCS: 36415; 71010; 71275; 74175; 78452; 80048; 80053; 83036; 83735; 84100; 84484; 85025; 86635; 93005; 93017; 96374; 96375; 99285; A9502; C8929; G0378; J1650; J1815; J2060; J2785; J7030; Q9967

== ENCOUNTER 2017-03-28 23:21 | Observation (INO) | payer OTHER ==
[~2017-03-28] VITALS: Ht 154.9 cm; Wt 110.0 kg
[~2017-03-28 23:21] MED LIST changes: -ALPR.25T PO; +ALPR1TAB7 PO; -ASP81TEC PO; +ASPI81TA3 PO; +ATOR80TA PO; -COZ100 PO; -GLU500 PO; -HUM100VI SQ; +HYDR25TA4 PO; +INSU100I; +INSU100I13 SUBQ; -LEVO137T18 PO; +LEVO150T5 PO; +LOSA100T29 PO; +MIRT30TA6 PO; +OMEG-38 PO; +OMEP20CA11 PO; -SERT100T PO; +TRAZ-115 PO; -TRAZ-151 PO; +UBID1CAP59 PO; -ZOC10 PO
--- NOTE | 2017-03-28 23:21 | ED.REPORT ---
HPI-Chest Pain 40 and Over Date of Service Mar 28, 2017 ED Provider: Jaya Broderick MD Pt is a 62 year old female with a hx of HTN, DM, hypothyroidism, and anxiety who presents to the ED via EMS with concerns for resolved chest pain and shortness of breath. She reports that she has had these symptoms intermittently over the past several months, with a negative echocardiogram and scheduled stress test. She states that these symptoms last several minutes at a time. Pt describes the pain as dull and located under her right breast. She reports shortness of breath at all times, nausea, but denies cough, fevers, chills, vomiting, or any other symptoms. She denies any recent prolonged periods of immobilization. She reports a history of anxiety and panic attacks, typically associated with chest pain, but not typically with shortness of breath. 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) venlafaxine (Verified Allergy, Severe, psychotic episode, 11/26/15) Penicillins (Verified Allergy, Intermediate, hives, 11/26/15) Scheduled Aspirin Chew (Aspirin Chew) 81 Mg Chew 81 MG PO DAILY Atorvastatin (Lipitor) 80 Mg Tablet 80 MG PO DAILY Hydrochlorothiazide (Hydrochlorothiazide) 25 Mg Tablet 25 MG PO DAILY Insulin Aspart (NovoLOG U-100 Pen) 100 Unit/Ml Insuln.pen 20 TID Insulin Glargine (Lantus U100 Solostar Insulin Pen) 100 Unit/1 Ml Insuln.pen 90 UNIT SUBQ HS Levothyroxine (Levothyroxine) 150 Mcg Tablet 150 MCG PO DAILY Mirtazapine (Mirtazapine) 30 Mg Tablet 30 MG PO HS Omeprazole (Omeprazole) 20 Mg Capsule.dr 20 MG PO DAILY Trazodone (Trazodone) 50 Mg Tablet 50 MG PO HS Scheduled PRN Alprazolam (Alprazolam) 1 Mg Tablet 0.5-1 MG PO TID PRN PRN For Anxiety Miscellaneous Medications Losartan Potassium (Losartan Potassium) 100 Mg Tablet 100 MG PO [place]-3/Dha/Epa/Fish Oil (Fish Oil 1,000 mg Softgel) 1 Each Capsule 2 EACH PO Ubidecarenone/Vitamin E Mixed (Bzd77-Dmp E 200 mg-20 Unit Sfg) 200 Mg-20 Unit Capsule 1 EACH PO General Time Seen by MD: 23:20 Chief Complaint Chest pain Hx Obtained From: Patient Arrived By: Ambulance Sudden in Onset?: No Symptom Duration: Intermittent Location: : Chest right Severity: Current: Mild Severity: Maximum: Moderate Similar Sx Previous: Yes Past Medical History Past Medical History Diabetes Hypertension hyperlipidemia Agoraphobia Hypothyroidism Pulmonary nodule Anxiety and Depression Past Surgical History Foot surgery Reports: Cholecystectomy Smoking History Current Every Day Smoker Social History Alcohol Use: "Social" Drug Use: THC Ambulatory Status Independent Review of Systems Constitutional: Denies: Chills, Fever, Malaise, Weakness - generalized Respiratory: Reports: Shortness of breath, Denies: Non-productive cough, Wheezing Cardiovascular: Reports: Chest pain, Denies: Syncope GI: Reports: Nausea, Denies: Abdominal pain, Constipation, Diarrhea, Vomiting Musculoskeletal: Denies: Back pain, Extremity pain, Neck pain Skin: Denies Diaphoresis, Denies Swelling Neurologic: Denies: Change LOC, Dizziness, Headache, Syncope, Weakness Complete sys rev & neg: except as marked. Physical Exam Initial Vital Signs Vital Signs (First) Date Time Temp Pulse Resp B/P Pulse Ox O2 Delivery O2 Flow Rate FiO2 03/28/17 23:25 37.0 83 14 151/53 97 Room Air Initial VS: Reviewed Head / Eyes: Atraumatic, Normocephalic, PERRL ENT: Mucous membranes moist, Conjunctiva normal, No scleral icterus Neck: Supple, Non-tender, Full range of motion Back: No CVA tenderness Lymphatic: No lymphadenopathy Skin: Warm, Dry, No cyanosis Neurologic: Alert, Oriented, Nonfocal General/Constitutional: Awake, Alert Respiratory / Chest: Atraumatic, Breath sounds NL, Breath sounds = bilat, No respiratory distress Chest pain reproducille with palpation Cardiovascular: Heart rate NL, Regular rhythm, Heart sounds NL Heart Sounds / Murmur: Positive: Systolic murmur present.. Abdomen: Atraumatic, Soft, Non-tender Interpretation & Diagnostics Lab Results Interpretation Result Diagram: 03/28/17 2333 03/28/17 2333 Test 03/28/17 23:33 White Blood Count 9.4th/mm3 (3.8-10.1) Red Blood Count 3.80mil/mm3 (3.90-5.20) Hemoglobin 11.6g/dL (12.0-15.6) Hematocrit 33.3% (35.0-46.0) Mean Corpuscular Volume 87.6fL (81-100) Mean Corpuscular Hemoglobin 30.5pg (27.0-35.0) Mean Corpuscular Hemoglobin Concent 34.8% (32.0-37.0) Red Cell Distribution Width 13.7% (12.3-15.4) Platelet Count 188bil/L (150-400) Neutrophils (%) (Auto) 49.9% (40-74) Lymphocytes (%) (Auto) 40.3% (14-46) Monocytes (%) (Auto) 8.1% (4-12) Eosinophils (%) (Auto) 1.3% (0-5) Basophils (%) (Auto) 0.2% (0-3) D-Dimer < 0.50mg/L FEU (<0.50) Sodium Level 135mEq/L (134-144) Potassium Level 3.9mEq/L (3.5-5.2) Chloride Level 99mEq/L (97-108) Carbon Dioxide Level 19mmol/L (18-29) Blood Urea Nitrogen 25mg/dL (8-27) Creatinine 1.15mg/dL (0.57-1.00) Estimat Glomerular Filtration Rate 68mL/min (>59) Glucose Level 297mg/dL (60-99) Calcium Level 9.4mg/dL (8.5-10.1) Magnesium Level 1.6mg/dL (1.6-2.6) Total Bilirubin 0.2mg/dL (0.0-1.2) Aspartate Amino Transf (AST/SGOT) 45U/L (0-50) Alanine Aminotransferase (ALT/SGPT) 32U/L (0-32) Alkaline Phosphatase 123U/L (25-165) Troponin T < 0.010ug/L (0.0-0.011) Total Protein 7.5g/dL (6.4-8.4) Albumin 4.0g/dL (3.4-5.0) ECG Interpretation ECG Interpretation: SR - [address] elev v1 v2 Slight depression in v5 and v6 LVH Unchanged from previous Time: 23:27 Interpreted by: ED physician Re-Eval/Medical Decision Med Decision/Clinical Course 62-year-old female history of diabetes, hypertension, hyperlipidemia, anxiety presenting with intermittent chest pain times several weeks. It radiates to her neck and back. Associated dyspnea. EKG with mild ST elevations in V1 and V2 and depressions in lateral leads which is unchanged from previous. Troponins are negative. Patient will be admitted for ACS rule out. Source of Hx: Old records Time of Eval: 00:28 Re-Evaluation/Progress Note: Pt is rechecked and informed of the need to admit her at this time. She understands and agrees, all questions are addressed. Consultation : Referral / Consult Name: Jaz Weston DO Consulted With: Hospitalist Call Returned at: 01:02 Sales And Management Trainee: Will see patient, Agrees with plan, Accepts admit Counseled Regarding: Diagnosis, Lab results, Need for admission Discharge & Departure Primary Impression: Chest pain Disposition: ADMITTED TO HOSPITAL Discharge Condition All VS Reviewed: Yes Condition: Stable Referrals: LUCI VARGAS MD (PCP) (Family) Hanny Attestation Portions of this note were transcribed by Daisy Garner. I, Dr. Broderick personally performed the history, physical exam and medical decision-making; I reviewed and confirmed the accuracy of the information in the transcribed note. Signed by:Hanny Pendleton, 03/28/2017 00:27 copies to: LUCI VARGAS MD, Ben M MD Mar 28, 2017 23:21 DARIA GARNER Mar 28, 2017 23:28
[2017-03-28 23:25] VITALS: BP 151/53; PULSE 83; RESP 14; O2SAT 97
[2017-03-28 23:40] LABS: BASOPHILS % (AUTO) 0.2 % (0-3); EOSINOPHILS % (AUTO) 1.3 % (0-5); MONOCYTES % (AUTO) 8.1 % (4-12); Mean Corpuscular Hemoglobin 30.5 pg (27.0-35.0); Mean Corpuscular Volume 87.6 fL (81-100); NEUTROPHILS % (AUTO) 49.9 % (40-74); Platelet Count 188 bil/L (150-400)
[2017-03-29] VITALS (9 sets, daily range): BP systolic 128–151; BP diastolic 49–76; PULSE 67–79; RESP 14–18; O2SAT 94–98
[2017-03-29 00:10] LABS: Magnesium 1.6 mg/dL (1.6-2.6); TROPONIN T < 0.010 ug/L (0.0-0.011)
[2017-03-29] MEDS ORDERED: Ondansetron 2 mg/mL 2 mL Inj IVPUSH PRN ×2 (01:10→01:20)
[2017-03-29] MEDS ORDERED: Alum-Mag Hydrox-Simeth 30 mL Suspension PO PRN ×2 (01:10→01:20)
[2017-03-29] MEDS ORDERED: Senna-Docusate 8.6-50 mg Tablet PO PRN (01:20)
[2017-03-29] MEDS ORDERED: Polyethylene Glycol (PEG) 17 Gm Powder PO PRN (01:20)
[2017-03-29] MEDS ORDERED: Atropine 1 mg/10 mL (Code) Syringe IVPUSH PRN (01:20)
[2017-03-29 01:47] LABS: COLOR,URINE YELLOW (YELLOW)
[2017-03-29 01:48] LABS: APPEARANCE,URINE CLEAR (CLEAR,HAZY); OCCULT BLOOD,URINE TRACE (NEGATIVE); UROBILINOGEN,URINE NORMAL (NORMAL)
[2017-03-29 01:54] LABS: Magnesium 1.6 mg/dL (1.6-2.6)
[2017-03-29] MEDS: 0.9% Sodium Chloride 1,000 ML IV SCH ×2 (02:15→11:17)
[2017-03-29] MEDS: Heparin 5,000 Unit/mL Inj SUBQ SCH ×3 (02:17→17:13)
--- NOTE | 2017-03-29 02:24 | PCM.HPMED ---
Subjective Date of Service Mar 29, 2017 Primary Provider: Admitting Physician: Jaz Weston DO Primary Care Physician: Abida Cedeno MD Attending Physician: Jaz Weston DO Chief Complaint: Chest pain History of Present Illness: Estella Ledesma 62-year-old woman with history of hypertension, diabetes mellitus type II insulin using, hypothyroidism, chronic anxiety had episode of chest pain, diaphoresis, shortness of breath earlier this evening. Symptoms started while she was watching a television show which was "probably too intense "when she felt the sensation in her mid chest, described as dull and located underneath her sternum and medial epigastrium, she tried going to bed which involved ascending about 15 stairs when she got to the top she noticed she was significantly short of breath, having chest pain and sweating with tingling sensation going down her left arm. She has had symptoms similar to this in the past and told that it was "inter costal pain." She had an echocardiogram performed March 11 while at [facility] which she said showed stenotic aortic valve, she does not remember hearing a phrase congestive heart failure, she is not having a dry cough, she is able to walk as far as she needs on flat ground without ever becoming short of breath. She is followed by Dr. Guzmán, cardiology in [place] who she saw her recently and there was a change in her medications. She is scheduled to have stress test done in roughly 1 week. She was evaluated in the emergency department, initial troponin was negative, EKG was unrevealing, and patient stated she felt unsafe going home with the symptoms presenting while she is at rest. She denies any lightheadedness, dizziness, nausea vomiting diarrhea, chest pain shortness of breath, headaches, changes in vision, numbness tingling or weakness in arms and hands feet or legs. She has noticed swelling in her bilateral lower extremities which gets worse throughout the day and resolves at night while she sleeps. On presentation to the emergency department: 37.0, 83, 14, 141/53, 97% on room air, on admission blood pressure is decreased to 136/67. Hematology's were unremarkable, chemistries: Creatinine 1.15, glucose 297, troponin negative, liver enzymes normal, TSH normal. Chest x-ray did not demonstrate any acute cardiopulmonary process by my evaluation EKG interpreted as sinus rhythm, regular rate, slight ST elevations in V1, V2, depressions in V6, V5, unchanged from previous. Patient admitted for unstable angina, telemetry observation repeat labs in the morning, Review of Systems: A comprehensive review of systems was conducted with the patient and found to be negative except as above in the history of presenting illness. 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 HEENT: Normocephalic, atraumatic, EOMI grossly, mucous membranes moist, neck supple without lymphadenopathy, no JVD appreciated, conjunctiva pink Cardiovascular: Regular rate and rhythm, 4/6 harsh systolic murmur heard best at right upper sternal border, 2/4 peripheral pulses upper and lower extremities equal bilaterally. Pulmonary: Clear to auscultation bilaterally, no W/R/R. Abdominal: Soft to palpation, bowel sounds present 4, no hepatosplenomegaly. Negative rebound. Extremities: Mild pitting edema bilaterally up to the mid tibial area. No tenderness, asymmetry. Neuro: Neurologically grossly intact, strength is equal bilaterally upper and lower extremities. MSK: Able to move extremities on their own volition, strength 5 out of 5 equal bilaterally to upper and lower extremities. Derm: Red moist lesion with active border left inguinal fold, painful, burning. Psych: A&O 4, appropriate mood and affect. Lab and Diagnostics Result Diagram: 03/28/17 2333 03/28/17 2333 X-Rays, CTs and MRIs Chest x-ray performed 03/28/2017 Elevated left hemidiaphragm, cephalization of vasculature, haziness from overlying tissue, do not appreciate any acute cardiopulmonary process. Await official read from radiologist 12-lead ECG EKG interpreted as sinus rhythm, regular rate, slight ST elevations in V1, V2, depressions in V6, V5, unchanged from previous. Assessment & Plan 62-year-old woman with hypertension, hyperlipidemia, diabetes mellitus type II insulin using, chronic anxiety and depression, presents after experiencing shortness of breath, diaphoresis, chest pain, evaluation revealed no change in EKG were elevated troponin initially, admitted for ongoing evaluation and monitoring for unstable angina. Chest pain, present on admission, active Chest pain, left arm tingling, diaphoresis, negative troponin, negative EKG Patient currently on atorvastatin, and aspirin, Monitor on telemetry Blood pressure management with chlorthalidone, losartan, complete medication reconciliation to be performed. Patient is under the care of slasher tender helper, Dr. Guzmán, given her aortic stenosis, and hesitant to start on more anti- hypertensives until we are able to receive last echo report from March 11. Records requested from [facility] Checking lipid panel Trend troponin Acute kidney injury, present on admission, active Serum creatinine 1.15 on evaluation, never elevated before on previous labs. BUN 25/creatinine 1.15 = 21.7; most likely represents prerenal azotemia, however given patient's uncontrolled diabetes may represent beginnings of diabetic nephropathy IV fluids 100 mL per hour normal saline Reassess with AM labs, if no improvement nephrology consult. Acute Tinea cruris, present on admission, active Red moist burning/itching lesion with active border to the left inguinal fold consistent with "jock itch" Nystatin powder twice a day Chronic diabetes mellitus type II, insulin using, present on admission, active Reports taking Lantus 90 units at bedtime, 20 units of NovoLog with meals 3 times a day. Hemoglobin A1c Patient reports only getting about 50 units tonight because she was house sitting, as of 2 AM blood glucose remains 262, High-dose correctional insulin now. Patient is on ARB. Chronic Morbid obesity, present on admission, active BMI 46.6 kg/m Patient reports having a appointment set up with diabetes education in the coming weeks here at [facility] We will place inpatient dietitian consult for weight loss down swelling Chronic aortic stenosis present on admission, active Patient reports being told that she would most likely need an operation on her aortic valve within the next 2 years Echo performed in March 11 at [facility], requesting report. Chronic hypertension, present on admission, active 151/53 initially, reduced to 136/67 on admission Continue home blood pressure medications losartan, chlorthalidone, doses to be prescribed following medication reconciliation. Denies headache, chest pain at this time Chronic GERD, present on admission, active Continue home omeprazole Chronic anxiety and depression, present on admission, active Continue home alprazolam, mirtazapine, trazodone, medication reconciliation to be performed for appropriate doses Chronic hypothyroidism, present on admission, active Continue home levothyroxine Medication reconciliation to be completed. Meds have been changed since last admission, requesting most recent medications from [facility], as well as echocardiogram report. Patient is admitted to observation status with anticipated length of stay less than 2 midnights, based on diagnosis, treatment plan, and risk of adverse events. DVT prophylaxis with subcutaneous heparin GI prophylaxis with home omeprazole Pain management as needed CODE STATUS: FULL CODE. Discussed with patient bedside Pain Evaluation: Adequate Pain Control GI Prophylaxis: Proton Pump Inhibitor VTE Prophylaxis: Sub-Q Heparin (Unfractionated) Resuscitation Status: CPR: Attempt Resuscitation Attending Statement The patient was seen and examined together with house staff on 03/29/2017 and I agree with the history, exam and plan as outlined in the note above. Otoniel Moreira DO Mar 29, 2017 02:24 Jaz Weston DO Mar 29, 2017 05:36
[2017-03-29] MEDS ORDERED: Insulin Human REGular 300 Unit/3 mL Inj SUBQ SCH (02:30)
[2017-03-29] MEDS: Nystatin 100,000 Unit/Gm 15 Gm Powder TOPICAL SCH ×3 (03:23→21:48)
--- NOTE | 2017-03-29 04:32 | NUR ---
admit note/med rec Pt is admitted to room 3028 around 01:20 from ED for chest pain. Pt is A&Ox4; denies any chest pain or discomfort. Tele SR 70s. independent in the room; gait steady. NPO for stress test in AM. BG was 262; rec'd an order for high dose algorithm. 7 units of Regular insulin given per sliding scale. will recheck pt's BG. Pt is oriented to room and plan of care; she verbalized understanding. fax sent by waiter/waitress bar to [facility] requesting recent med list and echo results. Med rec not completed at this time.
[2017-03-29] MEDS: Insulin LISPRO High-Dose Scale SUBQ SCH ×4 (08:00→21:47)
[2017-03-29] MEDS: Insulin LISPRO 300 Unit/3 mL Inj SUBQ SCH ×3 (08:00→17:14)
[2017-03-29] MEDS ORDERED: ALPRAZolam 0.5 mg Tablet PO ONE (08:10)
[2017-03-29] MEDS: Sodium Chloride LOK Flush 10 mL Syringe IVFLUSH SCH ×2 (08:24→17:13)
--- NOTE | 2017-03-29 09:10 | DRSVH ---
PROCEDURE: X-RAY CHEST ONE VIEW, PORTABLE ([id number]) INDICATIONS: chest pain TECHNIQUE: One view of the chest was acquired. COMPARISON: [facility], CR, XR CHEST 2VW, 10/18/2016, 14:52. [facility], CR , XR CHEST 1VW (PORTABLE), 08/12/2016, 14:29. FINDINGS: Surgical changes and devices: None. Lungs and pleura: No pleural effusions or pneumothorax. Lungs are clear. Mediastinum: Mediastinal contours appear normal. Heart size is normal. Bones and chest wall: No suspicious bony lesions. Overlying soft tissues appear unremarkable. IMPRESSION: Normal, source of chest pain is not found. Dictated by: Daren Jade M.D. on 03/29/2017 at 9:09 Approved by: Daren Jade M.D. on 03/29/2017 at 9:09
--- NOTE | 2017-03-29 16:01 | NUR ---
DIABETES EDUCATION. The patient is enrolled in our outpatient diabetes program and will begin 04/07. We discussed strategies for weight loss. She is committed due to her current health issues, and I expect excellent compliance if she can manage her social issues. I have left a message for [facility] [employer] to contact her in that regard.
--- NOTE | 2017-03-29 16:55 | DRSVH ---
PROCEDURE PERFORMED: Exercise treadmill converting to a pharmacologic stress-only myocardial perfusi on scan with gating to assess ejection fraction and regional wall motion. RADIOPHARMACEUTICAL: Stress: 23.6 mCi technetium-99 tetrofosmin. INDICATIONS: The patient is a 62-year-old obese diabetic female admitted with exertional dyspnea and atypical chest discomfort. COMPARISON: [facility], [place], [place] CARDIAC STRESS TEST PHARM, 08/14/2016, 9:35. CARDIAC STRESS: The patient was initially stressed by treadmill and was able to exercise for a total of 3 minutes and 57 seconds on a standard Sadi protocol, suggesting moderately impaired exercise ca pacity with an DEIDRE of +30%. She had a blunted heart rate response, achieving a maximum heart rate of only 127 BPM (81% of predicted), but had a significant hypertensive blood pressure response with a r esting blood pressure of 154/82, increasing to a peak blood pressure of 220/60. On the basis of this , she was converted to a pharmacologic Lexiscan study. She had no chest discomfort with exercise, al though did have dyspnea but maintained oxy saturations greater than 96%. With infusion of Lexiscan, she again had some mild dyspnea, but no chest discomfort. Her resting ECG showed some nonspecific in ferolateral ST segment abnormalities, which remain unchanged with either exercise or pharmacologic st ress. There were no arrhythmias. No aminophylline was given. FINDINGS: 1. Raw Data: There is fairly poor myocardial tracer uptake with significant breast shadows noted. On the supine images, there appears to be increased uptake the upper mediastinum, possibly in the thy roid. This is not evident on the prone images. Sestamibi can be taken up by hypermetabolic tissue, including malignancy, and clinical correlation is recommended. 2. Quantitative Gated SPECT: Post-stress ejection fraction is estimated at 76% without any focal wa ll motion abnormality. End diastolic volume is normal at 88 mL. 3. Myocardial Perfusion Imaging: Post-stress supine images show a fairly normal myocardial perfusio n study without any significant perfusion defects, supported by relatively normal myocardial perfusio n in the prone position. On the basis of this and her previous myocardial perfusion study that was a lso normal, it is felt that resting images were not needed. CONCLUSION: 1. Normal myocardial perfusion study. 2. No evidence for myocardial ischemia or previous myocardial infarction. 3. There is normal left ventricular size and systolic function without focal wall motion abnormality . 4. Moderately reduced exercise capacity with a hypertensive blood pressure response with associated dyspnea, but normal oxygen saturations and no angina or any change in her baseline electrocardiogram abnormalities to suggest ischemia. 5. Compared to her previous study from 08/14/2016, there has been no significant change. 6. Increased tracer uptake is noted in the upper mediastinum or base of the neck. Sestamibi can be preferentially taken up by hypermetabolic tissue such as malignancy. Clinical correlation is recomme nded. Dictated by: Abhijit Garcia M.D. on 03/29/2017 at 14:36 Transcribed by: BROOKS on 03/29/2017 at 19:55 Approved by: Abhijit Garcia M.D. on 03/30/2017 at 15:06 cc: JUSTIN Ibarra; Alex Guzmán MD
--- NOTE | 2017-03-29 18:34 | NUR ---
Med Rec Patient needed medication reconciliation finished. Nurse was waiting for fax from for a change in medication. did not respond yet, but the rest of [facility] rec has been completed. notified.
[2017-03-30 00:38] VITALS: BP 118/64; PULSE 72; RESP 18; O2SAT 97
[2017-03-30] MEDS: Heparin 5,000 Unit/mL Inj SUBQ SCH ×2 (00:50→08:08)
[2017-03-30] MEDS: Sodium Chloride LOK Flush 10 mL Syringe IVFLUSH SCH ×2 (00:50→08:07)
[2017-03-30 05:22] VITALS: BP 149/80; PULSE 72; RESP 18; O2SAT 96
[2017-03-30 05:27] LABS: BASOPHILS % (AUTO) 0.2 % (0-3); EOSINOPHILS % (AUTO) 1.7 % (0-5); Mean Corpuscular Volume 88.1 fL (81-100); NEUTROPHILS % (AUTO) 52.6 % (40-74); Platelet Count 183 bil/L (150-400)
--- NOTE | 2017-03-30 06:00 | NUR ---
Home meds Pt requesting HS medications this shift, paged. Orders for mirtazepine and trazodone obtained. Pt stating will speak to in the AM to get her BP medication ordered.
[2017-03-30 06:30] VITALS: PULSE 72
[2017-03-30] MEDS: Insulin LISPRO High-Dose Scale SUBQ SCH (08:07)
[2017-03-30] MEDS: Insulin LISPRO 300 Unit/3 mL Inj SUBQ SCH (08:07)
[2017-03-30] MEDS: Nystatin 100,000 Unit/Gm 15 Gm Powder TOPICAL SCH (08:08)
--- NOTE | 2017-03-30 08:56 | PCM.DC.MED ---
Discharge Summary Date of Service Mar 30, 2017 Dates of Hospitalization Date of Hospital Admission Mar 29, 2017 at 01:03 Date of Discharge: Mar 30, 2017 Providers: Admitting Physician: Jaz Weston DO Primary Care Physician: Abida Cedeno MD Attending Physician: Marleny Guerra MD Diagnosis at Time of Discharge Diagnosis at Time of Discharge Chest pain, present on admission, active- Acute kidney injury, present on admission, resolved. Acute Tinea cruris, present on admission, active Chronic diabetes mellitus type II, insulin using, present on admission, active Chronic Morbid obesity, present on admission, active Chronic aortic stenosis present on admission, active Chronic hypertension, present on admission, active Chronic GERD, present on admission, active Chronic anxiety and depression, present on admission, active Chronic hypothyroidism, present on admission, active Procedures XRay, CTs & MRIs Chest x-ray performed 03/28/2017 Elevated left hemidiaphragm, cephalization of vasculature, haziness from overlying tissue, do not appreciate any acute cardiopulmonary process. Await official read from radiologist ECG 12 Lead EKG interpreted as sinus rhythm, regular rate, slight ST elevations in V1, V2, depressions in V6, V5, unchanged from previous. Invasive Procedures [facility] Diagnostic [place] [address] Patient Name: ESTELLA VEGA MR#: [id number] Location[place] [facility] [place] [facility] [place] Ordering Phys: Marleny Guerra MD Date of Service: 03/29/17 0737 Caution: Report not yet finalized and possibly incomplete! PROCEDURE PERFORMED: Exercise treadmill converting to a pharmacologic stress- only myocardial perfusion scan with gating to assess ejection fraction and regional wall motion. RADIOPHARMACEUTICAL: Stress: 23.6 mCi technetium-99 tetrofosmin. INDICATIONS: The patient is a 62-year-old obese diabetic female admitted with exertional dyspnea and atypical chest discomfort. COMPARISON: [facility], [place], [place] CARDIAC STRESS TEST PHARM, 08/14/2016 , 9:35. CARDIAC STRESS: The patient was initially stressed by treadmill and was able to exercise for a total of 3 minutes and 57 seconds on a standard Sadi protocol , suggesting moderately impaired exercise capacity with an DEIDRE of +30%. She had a blunted heart rate response, achieving a maximum heart rate of only 127 BPM (81% of predicted), but had a significant hypertensive blood pressure response with a resting blood pressure of , increasing to 220/60. On the basis of this, she was converted to a pharmacologic Lexiscan study. She had no chest discomfort with exercise, although did have dyspnea but maintained oxy saturations greater than 96%. With infusion of Lexiscan, she again had some mild dyspnea, but no chest discomfort. Her resting ECG showed some nonspecific inferolateral ST segment abnormalities, which remain unchanged with either exercise or pharmacologic stress. There were no arrhythmias. No aminophylline was given. FINDINGS: 1. Raw Data: There is fairly poor myocardial tracer uptake with significant breast shadows noted. On the supine images, there appears to be increased uptake the upper mediastinum, possibly in the thyroid. This is not evident on the prone images. Sestamibi can be taken up by hypermetabolic tissue, including malignancy, and clinical correlation is recommended. 2. Quantitative Gated SPECT: Post-stress ejection fraction is estimated at 76 % without any focal wall motion abnormality. End diastolic volume is normal at 88 mL. 3. Myocardial Perfusion Imaging: Post-stress supine images show a fairly normal myocardial perfusion study without any significant perfusion defects, supported by relatively normal myocardial perfusion in the prone position. On the basis of this and her previous myocardial perfusion study that was also normal, it is felt that resting images were not needed. CONCLUSION: 1. Normal myocardial perfusion study. 2. No evidence for myocardial ischemia or previous myocardial infarction. 3. There is normal left ventricular size and systolic function without focal wall motion abnormality. 4. Moderately reduced exercise capacity with a hypertensive blood pressure response with associated dyspnea, but normal oxygen saturation and no angina or any change in her baseline electrocardiogram abnormalities to suggest ischemia. 5. Compared to her previous study from 08/14/2016, there has been no significant change. 6. Increased tracer uptake is noted in the upper mediastinum or base of the neck. Sestamibi can be preferentially taken up by hypermetabolic tissue such as malignancy. Clinical correlation is recommended. Dictated by: Abhijit Garcia M.D. on 03/29/2017 at 14:36 Transcribed by: BROOKS on 03/29/2017 at 19:55 Brief History Per HPI by Dr. Dial on 03/30/17 Estella Vega 62-year-old woman with history of hypertension, diabetes mellitus type II insulin using, hypothyroidism, chronic anxiety had episode of chest pain, diaphoresis, shortness of breath earlier this evening. Symptoms started while she was watching a television show which was "probably too intense "when she felt the sensation in her mid chest, described as dull and located underneath her sternum and medial epigastrium, she tried going to bed which involved ascending about 15 stairs when she got to the top she noticed she was significantly short of breath, having chest pain and sweating with tingling sensation going down her left arm. She has had symptoms similar to this in the past and told that it was "inter costal pain." She had an echocardiogram performed March [address] [facility] which she said showed stenotic aortic valve, she does not remember hearing a phrase congestive heart failure, she is not having a dry cough, she is able to walk as far as she needs on flat ground without ever becoming short of breath. She is followed by Dr. Guzmán, cardiology in [place] who she saw her recently and there was a change in her medications. She is scheduled to have stress test done in roughly 1 week. She was evaluated in the emergency department, initial troponin was negative, EKG was unrevealing, and patient stated she felt unsafe going home with the symptoms presenting while she is at rest. She denies any lightheadedness, dizziness, nausea vomiting diarrhea, chest pain shortness of breath, headaches, changes in vision, numbness tingling or weakness in arms and hands feet or legs. She has noticed swelling in her bilateral lower extremities which gets worse throughout the day and resolves at night while she sleeps. On presentation to the emergency department: 37.0, 83, 14, 141/53, 97% on room air, on admission blood pressure is decreased to 136/67. Hematology's were unremarkable, chemistries: Creatinine 1.15, glucose 297, troponin negative, liver enzymes normal, TSH normal. Chest x-ray did not demonstrate any acute cardiopulmonary process by my evaluation EKG interpreted as sinus rhythm, regular rate, slight ST elevations in V1, V2, depressions in V6, V5, unchanged from previous. Patient admitted for unstable angina, telemetry observation repeat labs in the morning, Hospital Course 62-year-old woman with hypertension, hyperlipidemia, diabetes mellitus type II insulin using, chronic anxiety and depression, presents after experiencing shortness of breath, diaphoresis, chest pain, evaluation revealed no change in EKG were elevated troponin initially, admitted for ongoing evaluation and monitoring for chest pain s/p Stress Test w/ no evidence for myocardial ischemia or previous myocardial infarction Chest pain, present on admission, active- s/p Stress Test w/ no evidence for myocardial ischemia or previous myocardial infarction Sx resolved- left arm tingling, diaphoresis, negative troponins, negative EKG Patient currently on atorvastatin, and aspirin, Monitor on telemetry, no events. Patient is under the care of recruiting coordinator, Dr. Guzmán, given her aortic stenosis. s/p Stress Test w/ no evidence for myocardial ischemia or previous myocardial infarction. Discussed with Cariologist, Dr. Taylor. feels Stress is unchanged from Aug 2016. Copy of stress test part of discharge instruction to give to Dr. Guzmán. Acute kidney injury, present on admission, resolved. Serum creatinine 1.15 on evaluation, never elevated before on previous labs. BUN 25/creatinine 1.15 = 21.7; most likely represents prerenal azotemia, however given patient's uncontrolled diabetes may represent beginnings of diabetic nephropathy IV fluids 100 mL per hour normal saline were given. Acute Tinea cruris, present on admission, active Red moist burning/itching lesion with active border to the left inguinal fold consistent with "jock itch" Nystatin powder twice a day. Chronic diabetes mellitus type II, insulin using, present on admission, active Reports taking Lantus 90 units at bedtime, 20 units of NovoLog with meals 3 times a day. Hemoglobin A1c Patient reports only getting about 50 units tonight because she was house sitting, as of 2 AM blood glucose remains 262, High-dose correctional insulin now. Patient is on ARB. Chronic Morbid obesity, present on admission, active BMI 46.6 kg/m Patient reports having a appointment set up with diabetes education in the coming weeks here at [facility] Chronic aortic stenosis present on admission, active Patient reports being told that she would most likely need an operation on her aortic valve within the next 2 years Echo performed in March 11 at [facility] f/u with outpatient Clinical Massage Therapist. . Chronic hypertension, present on admission, active 151/53 initially, reduced to 136/67 on admission Continued home blood pressure medications losartan, chlorthalidone, doses to be prescribed following medication reconciliation. Denies headache, chest pain. Chronic GERD, present on admission, active Continue home omeprazole Chronic anxiety and depression, present on admission, active Continue home alprazolam, mirtazapine, trazodone, medication reconciliation to be performed for appropriate doses Chronic hypothyroidism, present on admission, active Continue home levothyroxine DVT prophylaxis with subcutaneous heparin GI prophylaxis with home omeprazole Pain management as needed CODE STATUS: FULL CODE. Discussed with patient bedside Dispo- Copy of negative stress test part of discharge instruction to give to Dr. Guzmán. Continue with home medications. Follow up with Cardiology, Dr. Guzmán next week. Exam Vital Signs (Last) Date Time Temp Pulse Resp B/P Pulse Ox O2 Delivery O2 Flow Rate FiO2 03/30/17 06:30 72 03/30/17 05:22 36.2 18 149/80 96 Room Air Test 03/28/17 23:33 03/29/17 01:40 03/29/17 07:33 03/30/17 05:10 D-Dimer < 0.50mg/L FEU (<0.50) Magnesium Level 1.6mg/dL (1.6-2.6) Total Bilirubin 0.2mg/dL (0.0-1.2) Aspartate Amino Transf (AST/SGOT) 45U/L (0-50) Alanine Aminotransferase (ALT/SGPT) 32U/L (0-32) Alkaline Phosphatase 123U/L (25-165) Total Protein 7.5g/dL (6.4-8.4) Albumin 4.0g/dL (3.4-5.0) Thyroid Stimulating Hormone (TSH) 2.960uIU/mL (0.450-4.500) Urine Color Yellow (YELLOW) Urine Appearance Clear (CLEAR,HAZY) Urine pH 6.0 (5.0-8.0) Urine Specific [place] 1.018 (1.003-1.035) Urine Protein 100mg/dL (NEG,TRACE) Urine Glucose (UA) 250mg/dL (NEGATIVE) Urine Ketones Negativemg/dL (NEGATIVE) Urine Occult Blood Trace (NEGATIVE) Urine Nitrite Negative (NEGATIVE) Urine Bilirubin Negative (NEGATIVE) Urine Urobilinogen Normalmg/dL (NORMAL) Urine Leukocyte Esterase Negative (NEGATIVE) Urine RBC 0-2/hpf (0-2) Urine WBC 0-5/hpf (0-5) Urine Epithelial Cells Moderate/hpf (NONE-MOD) Urine Crystals None seen (NONE SEEN) Urine Bacteria Few/hpf (NONE-FEW) Urine Hyaline Casts Occasional/lpf (NONE) Urine Granular Casts None seen (NONE SEEN) Urine Waxy Casts None seen (NONE SEEN) Urine Red Blood Cell Casts None seen (NONE SEEN) Urine White Blood Cell Casts None seen (NONE SEEN) Urine Mucus None seen (None Seen) Urine Trichomonas None seen (NONE SEEN) Urine Yeast None (NONE SEEN) Urinalysis Comment None Urine Culture Reflexed Not indicated Troponin T 0.010ug/L (0.0-0.011) White Blood Count 8.6th/mm3 (3.8-10.1) Red Blood Count 3.87mil/mm3 (3.90-5.20) Hemoglobin 11.6g/dL (12.0-15.6) Hematocrit 34.1% (35.0-46.0) Mean Corpuscular Volume 88.1fL (81-100) Mean Corpuscular Hemoglobin 30.0pg (27.0-35.0) Mean Corpuscular Hemoglobin Concent 34.0% (32.0-37.0) Red Cell Distribution Width 13.4% (12.3-15.4) Platelet Count 183bil/L (150-400) Neutrophils (%) (Auto) 52.6% (40-74) Lymphocytes (%) (Auto) 38.3% (14-46) Monocytes (%) (Auto) 7.0% (4-12) Eosinophils (%) (Auto) 1.7% (0-5) Basophils (%) (Auto) 0.2% (0-3) Sodium Level 136mEq/L (134-144) Potassium Level 4.3mEq/L (3.5-5.2) Chloride Level 99mEq/L (97-108) Carbon Dioxide Level 22mmol/L (18-29) Blood Urea Nitrogen 22mg/dL (8-27) Creatinine 0.83mg/dL (0.57-1.00) Estimat Glomerular Filtration Rate 99mL/min (>59) Glucose Level 241mg/dL (60-99) Calcium Level 8.9mg/dL (8.5-10.1) Triglycerides Level 412mg/dL (0-149) Cholesterol Level 170mg/dL (100-199) LDL Cholesterol, Calculated 57.600mg/dL (0-99) VLDL Cholesterol 82.400mg/dL HDL Cholesterol 30mg/dL (>39) Cholesterol/HDL Ratio 5.67 (0.0-4.4) Discharge Medications Discharge Medications Aspirin Chew (Aspirin Chew) 81 Mg Chew 81 MG PO DAILY (Reported) Atorvastatin (Lipitor) 80 Mg Tablet 80 MG PO DAILY (Reported) Chlorthalidone (Chlorthalidone) 25 Mg Tablet 25 MG PO ONCE Prescribed by: MARLENY GUERRA MD Insulin Aspart (NovoLOG U-100 Pen) 100 Unit/Ml Insuln.pen 20 TID (Reported) Insulin Glargine (Lantus U100 Solostar Insulin Pen) 100 Unit/1 Ml Insuln.pen 90 UNIT SUBQ HS (Reported) Levothyroxine (Levothyroxine) 150 Mcg Tablet 150 MCG PO DAILY (Reported) Mirtazapine (Mirtazapine) 30 Mg Tablet 30 MG PO HS (Reported) Omeprazole (Omeprazole) 20 Mg Capsule.dr 20 MG PO DAILY (Reported) Trazodone (Trazodone) 50 Mg Tablet 50 MG PO HS (Reported) As needed Alprazolam (Alprazolam) 1 Mg Tablet 0.5-1 MG PO TID PRN PRN For Anxiety ( Reported) Miscellaneous Medications Losartan Potassium (Losartan Potassium) 100 Mg Tablet 100 MG PO (Reported) [place]-3/Dha/Epa/Fish Oil (Fish Oil 1,000 mg Softgel) 1 Each Capsule 2 EACH PO ( Reported) Ubidecarenone/Vitamin E Mixed (Ayt09-Ske E 200 mg-20 Unit Sfg) 200 Mg-20 Unit Capsule 1 EACH PO (Reported) Additional med instructions Continue with home medications. We will give you 40 units of your long acting Insulin- Lantus now this morning. Tonight you can take 50 units. On the evening of 03/31 you can resume normal 90 units of Lantus in the evening. Check you blood sugars three times a day and bedtime for next 2 days and cover with your short acting insulin using your normal regimen of 20 units with meals and for additional coverage use sliding scale coverage until you are back on your normal regimen. Can resume Losartan tonight Followup Plan Disposition: Home Follow-up plan Follow up with Cardiology, Dr. Guzmán next week. Copy of negative stress test part of discharge instruction to give to Dr. Guzmán. Discharge Diet: Heart Healthy, Diabetic Discharge Activity: Limited until seen by PCP Follow-up Provider: Joaquín Guzmán MD Follow-up with PCP in: 1 week Time spent Greater than 30 minutes was spent in preparation of discharge with greater than 50% of that time dedicated to patient counseling and coordination of care. copies to: Joauqín Guzmán MD, Navdeep MD Mar 30, 2017 08:55
--- NOTE | 2017-03-30 08:59 | PCM.DIMED ---
Discharge Instructions Date of Service Mar 30, 2017 Dates of Hospitalization Mar 29, 2017 at 01:03 Discharge Diagnosis Discharge Diagnosis Chest pain, present on admission, active- Acute kidney injury, present on admission, resolved. Acute Tinea cruris, present on admission, active Chronic diabetes mellitus type II, insulin using, present on admission, active Chronic Morbid obesity, present on admission, active Chronic aortic stenosis present on admission, active Chronic hypertension, present on admission, active Chronic GERD, present on admission, active Chronic anxiety and depression, present on admission, active Chronic hypothyroidism, present on admission, active Medication Instructions Additional med instructions Continue with home medications. Diet Discharge Diet: Heart Healthy, Diabetic Activity Discharge Activity: Limited until seen by PCP Patient Instructions Follow-up plan Follow up with Cardiology, Dr. Guzmán next week. Copy of negative stress test part of discharge instruction to give to Dr. Guzmán. Follow-up Provider: Joaquín Guzmán MD Follow-up with PCP in: 1 week Ted Guerra MD Mar 30, 2017 08:59
[2017-03-30] MEDS ORDERED: Insulin GLARgine 100 Unit/mL Syringe SUBQ ONE (09:00)
[2017-03-30] MEDS ORDERED: HYG25 PO (09:09)
[2017-03-30 10:08] VITALS: BP 135/75; PULSE 80; RESP 18; O2SAT 95
[2017-03-30 10:30] VITALS: PULSE 82
--- NOTE | 2017-03-30 10:47 | NUR ---
Social Work: Readiness For Discharge Data: EMR reviewed. Patient is on day 1 of hospitalization for chest pain per H&P. Patient was discussed in morning rounds. Patient has been deemed medically stable for discharge per MD. Transportation will be provided by family. Patient will discharge with no needs. Assessment: Patient to discharge home with no needs. Plan: Patient to discharge home today with no needs. Transportation will be provided by family. Patient has no additional needs at this time. SIRIA Ferrer
--- NOTE | 2017-03-30 11:29 | NUR ---
Discharge Pt discharged home with friend via private vehicle. Pt verbalized understanding of discharge, Rx and follow up instructions, personal belongings accounted for and left with pt.
== END 2017-03-30 11:20 | disposition home or self-care (01) ==
LOC: SED 23:21 → MPC 03-29 01:03
PROVIDERS: ADMIT Internal Medicine; ATTEND Internal Medicine
DX: R07.9 Chest pain, unspecified (principal); R06.02 Shortness of breath; N17.9 Acute kidney failure, unspecified; E11.9 Type 2 diabetes mellitus without complications; I10 Essential (primary) hypertension; E78.5 Hyperlipidemia, unspecified; E66.01 Morbid (severe) obesity due to excess calories; Z68.42 Body mass index [BMI] 45.0-49.9, adult; I35.0 Nonrheumatic aortic (valve) stenosis; F40.00 Agoraphobia, unspecified; K21.9 Gastro-esophageal reflux disease without esophagitis; F41.8 Other specified anxiety disorders; F32.9 Major depressive disorder, single episode, unspecified; E03.8 Other specified hypothyroidism; Z87.891 Personal history of nicotine dependence; B35.6 Tinea cruris; Z79.4 Long term (current) use of insulin
CPT/HCPCS: 36415; 71010; 78451; 80048; 80053; 80061; 81000; 83036; 83735; 84443; 84484; 85025; 85378; 93005; 93017; 96372; 96374; 96375; 99285; A9502; G0378; J1644; J1815; J1885; J2270; J2785; J7030